=== PATIENT | female | born 1955 | race Caucasian/White ===

== ENCOUNTER → 2018-01-20 14:48 | Outpatient (POV) | payer BC, SELFPAY | PROVIDERS: Visit Provider Dermatology | DX: Z00.00 Encounter for general adult medical examination without abnormal findings (principal) ==

== ENCOUNTER → 2018-03-15 16:50 | Outpatient (CLI) | payer BC, SELFPAY ==
--- NOTE | 2018-03-15 | MM_ITS ---
MM Dig screening mamm BI w/CAD CAD Screening ORDERING PHYSICIAN : Edgardo Byers PATIENT AGE: 62 years GENDER: Female HISTORY 62-year-old. Does take estrogen. no new complaints. COMPARISON: Previous mammograms: , December 2014, 2015, January 2017. AlsoJanuary 2009 , 2008, 2012, November 2013 bilateral mammograms utilized INDICATION: TECHNIQUE: Standard CC and MLO images were obtained. R2 CAD reviewed. FINDINGS: Mild/moderate breast density bilaterally Prior studies are helpful. No significant new areas of concern RIGHT BREAST:Stable fibroglandular pattern with no new findings.. Follow up one year adequate LEFT BREAST:Asymmetric slight irregular area of focal density at medial left breast on cc view has been seen on multiple studies dating back to 2008. It dissipates on today's axillary cc view and MLO view which speaks against a significant lesion as well. -----IMPRESSION: --- Stable bilateral mammogram no significant interval change. Bilateral follow-up in one year. BI-RADS Category: 2 Benign Finding(s) RECOMMENDED FOLLOW-UP: 1YR - 1 YEAR FOLLOW-UP (A letter has been sent to the patient regarding results of the study.)
== END ==
PROVIDERS: PCP Family Medicine; Visit Provider Obstetrics & Gynecology Gynecology
DX: Z12.31 Encounter for screening mammogram for malignant neoplasm of breast (principal)
CPT/HCPCS: 77067

== ENCOUNTER → 2019-01-12 15:06 | Outpatient (CLI) | payer BC, SELFPAY ==
--- NOTE | 2019-01-12 15:13 | XR_ITS ---
XR shoulder RT min 2V HISTORY: Right shoulder pain and tenderness ITS.REASON: RT SHOULDR PAIN,SHOULDER WEAKNESS ORDERING PHYSICIAN: Mary Winkler PATIENT AGE: 63 years Comparison: None FINDINGS: No fracture or dislocation. No lytic or blastic change. There is normal mineralization. The joint spaces are well-preserved. No significant degenerative/arthritic changes. No erosive changes evident. There is mild subacromial stenosis with lucencies along the subcortical region of the greater tuberosity. These findings may be seen with rotator cuff disease. IMPRESSION: Subacromial stenosis with subcortical lucencies of the greater tuberosity which may result in impingement upon the rotator cuff with rotator cuff disease
== END ==
PROVIDERS: PCP Family Medicine; Visit Provider Nurse Practitioner Family
DX: M25.511 Pain in right shoulder (principal); M62.81 Muscle weakness (generalized)
CPT/HCPCS: 73030

== ENCOUNTER → 2019-02-16 11:45 | Outpatient (CLI) | payer BC, SELFPAY ==
[2019-02-16 13:21] LABS: Free T4 (Free Thyroxine) 0.84 ng/dl (0.76-1.46); Thyroid Stimulating Hormone 1.77 uIU/ml (0.358-3.740)
[2019-02-17 14:42] LABS: Thyroid Peroxidase Antibodies 8 IU/mL (0-34)
[2019-02-20 13:08] LABS: Calcitonin <2.0 pg/mL (0.0-5.0); Thyroid Stimulating Immunoglob <0.10 IU/L (0.00-0.55)
== END ==
PROVIDERS: Visit Provider Otolaryngology
DX: E01.0 Iodine-deficiency related diffuse (endemic) goiter (principal); E04.1 Nontoxic single thyroid nodule
CPT/HCPCS: 36415; 82308; 84439; 84443; 84445; 86376

== ENCOUNTER → 2019-02-22 08:35 | Outpatient (CLI) | payer BC, SELFPAY ==
--- NOTE | 2019-02-22 08:37 | MR_ITS ---
MR shoulder RT wo con COMPARISON: 01/12/2019 HISTORY: Right shoulder pain with limited range of motion ORDERING PHYSICIAN: Heidi Dias MD PATIENT AGE: 63 years TECHNIQUE: Routine multiplanar multiecho sequences are performed without contrast. FINDINGS: Hypertrophic changes are present at the acromioclavicular joint. There is moderate to severe subacromial stenosis with low-lying lateral acromion with acromiohumeral space of 2 mm. There is complete tear of the supraspinatus tendon with mild retraction of the musculotendinous fibers. The infraspinatus tendon appears intact as does the subscapularis and teres minor tendon. There is a small joint effusion and a small amount fluid in the subacromial and subdeltoid region. Bicipital tendon is in place. No obvious labral tear. Small amount fluid is present in the subcoracoid region IMPRESSION: 1. Complete tear of the supraspinatus tendon with retraction of the musculotendinous fibers. 2. 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 Small shoulder joint effusion with small amount of fluid in the subcoracoid region consistent with mild bursitis
== END ==
PROVIDERS: PCP Family Medicine; Visit Provider Orthopaedic Surgery
DX: M75.100 Unspecified rotator cuff tear or rupture of unspecified shoulder, not specified as traumatic (principal)
CPT/HCPCS: 73221

== ENCOUNTER → 2019-02-27 15:17 | Outpatient (CLI) | payer BC, SELFPAY ==
--- NOTE | 2019-02-27 15:19 | US_ITS ---
US thyroid HISTORY: Enlarged thyroid gland ITS.REASON: enlarged ORDERING PHYSICIAN: Sanjay Vargas MD PATIENT AGE: 63 years Comparison: None FINDINGS: The right lobe is 4.3 x 1.2 x 1.2 cm. There is a 2 mm isoechoic nodule in the upper pole laterally and a 3 mm cyst in the lower pole. The left lobe is 3.9 x 1.1 x 1.6 cm. 3 mm hypoechoic nodule is present in the upper pole. A 4 mm cystic lesion is present in the lower pole. There is a 10 x 6 mm slightly hypoechoic nodule in the lower pole. This nodule well-circumscribed IMPRESSION: Bilateral thyroid nodules largest on the left at 1 cm. Low concern for malignancy. Recommend follow-up exam in 6 months to confirm stability.
== END ==
PROVIDERS: PCP Family Medicine; Visit Provider Otolaryngology
DX: E01.0 Iodine-deficiency related diffuse (endemic) goiter (principal); E04.1 Nontoxic single thyroid nodule
CPT/HCPCS: 76536

== ENCOUNTER → 2019-04-26 16:49 | Outpatient (CLI) | payer BC, SELFPAY ==
--- NOTE | 2019-04-26 16:58 | MM_ITS ---
MM Dig screening mamm BI w/CAD CAD Screening COMPARISON: Digital mammograms with CAD 02/12/2017 and 03/15/2018 INDICATION: There is no personal or family history of breast cancer TECHNIQUE: Standard CC and MLO images were obtained. R2 CAD reviewed. FINDINGS: Moderate somewhat heterogenic fibroglandular densities are seen in the central portions of both breasts and the findings are bilateral and symmetrical. There is a mole marker each breast. There is no suspicious lesion and there are no suspicious microcalcifications. IMPRESSION: Moderate breast density with no suspicious lesion seen BI-RADS Category: 2 Benign Finding(s) RECOMMENDED FOLLOW-UP: 1YR - 1 YEAR FOLLOW-UP (A letter has been sent to the patient regarding results of the study.)
== END ==
PROVIDERS: PCP Family Medicine; Visit Provider Obstetrics & Gynecology Gynecology
DX: Z12.31 Encounter for screening mammogram for malignant neoplasm of breast (principal)
CPT/HCPCS: 77067

== ENCOUNTER → 2019-05-30 09:27 | Outpatient (POV) | payer BC, SELFPAY | PROVIDERS: Visit Provider Dermatology | DX: Z00.00 Encounter for general adult medical examination without abnormal findings (principal) ==

== ENCOUNTER → 2019-07-03 11:05 | Outpatient (CLI) | payer BC, SELFPAY ==
--- NOTE | 2019-07-03 11:58 | ECG_ITS ---
APPROVED REPORT Exam: Resting ECG HR:60 bpm ECG Measurements Heart Rate 60 AXES TX 138 P 38 QRSd 76 QRS 75 QT 404 T 45 QTc 404 <Conclusion> Normal sinus rhythm Nonspecific ST abnormality Abnormal ECG Electronically signed by : Rui Gacria, 07/03/2019 17:32:57
[2019-07-03 12:08] LABS: Basophils % 0.8 % (0.1-2.0); Eosinophils # 0.2 K/mm3 (0.0-0.4); Eosinophils % 3.6 % (0.1-12.0); Hematocrit 37.4 % (37.0-47.0); Lymphocytes # 1.5 K/mm3 (0.7-4.5); Lymphocytes % 31.8 % (10-50); Mean Corpuscular HGB Conc 31.9 g/dL (31.8-35.4); Mean Corpuscular Hemoglobin 30.2 pg (27.0-31.2); Mean Corpuscular Volume 94.7 fl (81-99); Mean Platelet Volume 7.1 fl (7.4-10.4); Monocytes # 0.3 K/mm3 (0.1-1.0); Monocytes % 6.9 % (1.7-9.3); Neutrophils # 2.7 K/mm3 (1.8-7.8); Neutrophils % 56.9 % (37.0-80.0); Platelet Count 318 K/mm3 (142-424); Red Blood Count 3.96 M/mm3 (4.20-5.40); Red Cell Distribution Width 12.5 % (11.5-17.5); White Blood Count 4.8 K/mm3 (4.8-10.8)
[2019-07-03 12:47] LABS: Alanine Aminotransferase 27 U/L (12-78); Albumin Level 3.7 gm/dL (3.4-5.0); Albumin/Globulin Ratio 1.2 (1.1-1.8); Alkaline Phosphatase 68 U/L (46-116); Anion Gap 11.5 mEq/L (5-15); Aspartate Amino Transferase 17 U/L (15-37); Bilirubin,Total 0.3 mg/dL (0.2-1.0); Blood Urea Nitrogen 18 mg/dL (7-18); Calcium 9.4 mg/dL (8.5-10.1); Carbon Dioxide 31 mmol/L (21.0-32.0); Chloride 104 mmol/L (98-107); Creatinine,Serum 0.63 mg/dL (0.55-1.02); Estimated Glomerular Filt Rate 95 ml/min (>60); GFR (African American) 115 ML/MIN (>60); Glucose 73 mg/dL (74-106); Potassium 4.5 mmoL/L (3.5-5.1); Sodium 142 mmol/L (136-145); Total Protein,Serum 6.7 gm/dL (6.4-8.2)
== END ==
PROVIDERS: PCP Family Medicine; Visit Provider Orthopaedic Surgery
DX: Z01.818 Encounter for other preprocedural examination (principal)
CPT/HCPCS: 36415; 80053; 85025; 93005

== ENCOUNTER → 2019-08-31 13:55 | Outpatient (CLI) | payer BC, SELFPAY ==
--- NOTE | 2019-08-31 13:56 | US_ITS ---
PROCEDURE: US THYROID CLINICAL INDICATION: goiter Follow-up multiple thyroid nodules COMPARISON: THY US thyroid from 02/27/2019 FINDINGS: Right lobe: 3.9 x 1.3 x 1.4 cm. There are 3 stable hypoechoic nodules Left lobe: 4.2 x 1.2 x 1.4 cm. There are 2 hypoechoic nodules in the upper pole and may be due to small cyst unchanged. A 9 by 6 mm isoechoic nodules present in the lower pole well-circumscribed wider than tall with no obvious internal calcifications unchanged. In addition there is a 5 x 3 mm mixed nodule in the lower pole probably benign not recently demonstrated which may be due to technique Isthmus: Additional findings: IMPRESSION: Bilateral thyroid nodules overall not significantly changed. A 5 mm mixed cystic and solid nodules present in the lower pole not recently identified possibly related to the technique Dictated by: Kwadwo Osei MD 08/31/2019 17:25 Electronically signed by Kwadwo Osei MD in [place] 08/31/2019 17:25
[2019-08-31 16:33] LABS: Free T4 (Free Thyroxine) 0.92 ng/dl (0.76-1.46); Thyroid Stimulating Hormone 1.97 uIU/ml (0.358-3.740)
== END ==
PROVIDERS: PCP Family Medicine; Visit Provider Otolaryngology
DX: E04.1 Nontoxic single thyroid nodule (principal); E03.9 Hypothyroidism, unspecified; E04.9 Nontoxic goiter, unspecified
CPT/HCPCS: 36415; 76536; 84439; 84443

== ENCOUNTER → 2019-10-27 09:10 | Outpatient (CLI) | payer BC, SELFPAY ==
--- NOTE | 2019-10-27 09:15 | XR_ITS ---
PROCEDURE: XR SHOULDER RT MIN 2V CLINICAL INDICATION: shoulder pain Recurring shoulder pain COMPARISON: SHOULDCMRT XR shoulder RT min 2V from 01/12/2019 FINDINGS: There are postsurgical changes with [address] along the proximal humerus. There are mild osteoarthritic changes the glenohumeral joint with subacromial stenosis. No acute fracture or dislocation. IMPRESSION: There are postsurgical changes with [address] along the proximal humerus. There are mild osteoarthritic changes the glenohumeral joint with subacromial stenosis. No acute fracture or dislocation Dictated by: Kwadwo Osei MD 10/27/2019 11:45 Electronically signed by Kwadwo Osei MD in [place] 10/27/2019 11:45
== END ==
PROVIDERS: PCP Family Medicine; Visit Provider Orthopaedic Surgery
DX: M75.101 Unspecified rotator cuff tear or rupture of right shoulder, not specified as traumatic (principal); M75.21 Bicipital tendinitis, right shoulder; M75.41 Impingement syndrome of right shoulder
CPT/HCPCS: 73030

== ENCOUNTER 2019-12-18 10:30 | Outpatient (RCR) | payer BC, SELFPAY ==
--- NOTE | 2019-08-22 14:51 | HMH.OTOPEV ---
OT Inpatient Evaluation Rehab OT Outpatient Eval Start: 08/22/19 13:45 Freq: Status: Active Protocol: Document 08/22/19 13:46 TFRY (Rec: 08/22/19 14:28 TFRY [id number]) Electronically Signed By Hannah Benson OT 08/22/19 13:46 Outpatient Therapy Subjective History Subjective History This is 64 year right handed female referred to occupational therapy right shoulder RTC and biceps tenotomy. Patient underwent surgery on 08/08/19. Patient reported shoulder has been extremely painfully for past 11/2 years. Chief Complaint Pain Symptom Type Sharp,Other Symptoms Relieved By Rest/Positioning,Ice Symptoms Aggravated By Physical Activity Prior Functional Limitations None Current Functional Limitations Housework,Dressing,Sleeping Symptom Description Activity Dependent Level of pain today (0-10) 3 Pain scale - at its best (0-10) 2 Pain scale - at its worst (0-10) 7 Shoulder/Elbow Eval Shoulder Objective Measurements Shoulder ROM Right Shoulder ROM Limitations Pain Shoulder Abduction Passive Range of 55 Motion (degrees) Shoulder Flexion Passive Range of Motion 45 (degrees) Shoulder External Rotation Passive Range 0 of Motion (degrees) Shoulder Internal Rotation Passive Range 20 of Motion (degrees) pain with passive ROM shoulder exam right standard decreased ROM shoulder exam standard right Shoulder MMT Shoulder Strength Reason Not Measured Orthopedic Precautions Elbow Objective Measurements OT Outpatient Assessment Impairments Problems/Impairments Impaired Range of Motion, Impaired Strength,Impaired Dressing,Impaired Household Care,Subjective C/O Pain Prognosis Rehab Potential Good Clinical Impression Consistent with Diagnosis Yes Short Term Goals Number of Weeks 4 Increase Range of Motion Yes: right shoulder PROM - WFL Increase Strength Yes: right shoulder strength 3 /5 Improve Ability to Dress Self Yes: patient report increase independence Improve Ability For Household Care Yes: patient report increase independence Decrease Subjective C/O Pain Yes: patient report pain a 5 at worse in right shoulder Patient to be Ind w/ HEP Yes Patient to be Ind w/ Advanced HEP Yes 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
--- NOTE | 2019-09-22 09:58 | HMH.RHREAS ---
Rehab Reassessment Rehab OP Re-assessment Start: 09/22/19 09:02 Freq: Status: Active Protocol: Document 09/22/19 09:02 TFRY (Rec: 09/22/19 09:58 TFRY [id number]) Electronically Signed By Hannah Benson OT 09/22/19 09:02 Rehab Re-assessment Subjective Subjective It is about 60% better. Objective Objective Notes Patient seen this date for skilled occupational therapy services. See exercise flow sheet for exercises. Reassessment of PROM: shoulder flexion - 0-155; abduction - 0-130; int. rot. - 0-70; ext. rot. - 0-25. AROM shoulder - flex - 0-38; abduction - 0-55. Pain at worse is 5 in shoulder. Increasing independence with ADL's around home is improving. Assessment Progress Assessment Progressing as Expected Assessment Notes ROM improving. Decrease in pain and increasing independence with ADL's. Patient goals met STG's - 4/7 LTG s - 3/7 Goals Not Met ROM/strength Plan Plan Continue to work on unmet goals Frequency of Therapy 2 Duration of therapy 8 Time and Billing Re-Eval Time 5 Re-Eval Billing Units 0 PHYSICIAN CERTIFICATION: I certify the specified therapy services for Abby Mireles are required, authorized, and reviewed every 30 days.
--- NOTE | 2019-10-26 14:56 | HMH.RHREAS ---
Rehab Reassessment Rehab OP Re-assessment Start: 09/22/19 09:02 Freq: Status: Active Protocol: Document 10/26/19 11:08 RMJOSÉ MIGUELL (Rec: 10/26/19 14:56 RMARSHALL [id number]) Electronically Signed By Gentry Jeong OT 10/26/19 11:08 Rehab Re-assessment Objective Objective Notes Pt continues to be seen twice a week in order to address right shoulder deficits. Pt engages in AROM/AAROM/ Strengthening exercises at right shoulder. Pt also receives PROM manual stretching to right shoulder. Pt does receive modalities in order to decrease pain/ inflammation. Reassessment of PROM: shoulder flexion - 0-155; abduction - 0-130; int. rot. - 0-70; ext. rot. - 0-25. AROM shoulder - flex - 0-38; abduction - 0-55. Pain at worse is 5 in shoulder. Increasing independence with ADL's around home is improving. Assessment Progress Assessment Slower Than Expected Assessment Notes Pt reports she feels she has had a set back over the past few weeks. Pt explains she recalls a specific incident at her 8 week post op gt, when she was startled and jerked her right arm quickly in extension/abduction which immediately sent a sharp pain in the anterior aspect (long head of the bicep area). Since this occured she has had decreased AROM and strength at the right shoulder. Pt's ortho is aware of situation and she has seen the doctor. Last week she received a steroid injection in the shoulder, but has not seen an improvement in pain or motion since. Current Right shoulder AROM Flex: 90 degrees Abd: 80 degrees ER: 45 degrees
--- NOTE | 2019-11-23 11:42 | HMH.RHREAS ---
Rehab Reassessment Rehab OP Re-assessment Start: 09/22/19 09:02 Freq: Status: Active Protocol: Document 11/23/19 10:17 RMARSHALL (Rec: 11/23/19 11:42 RMARSHALL [id number]) Electronically Signed By Gentry Jeong OT 11/23/19 10:17 Rehab Re-assessment Subjective Subjective I see a lot of improvements now. Objective Objective Notes Pt continues to be seen twice a week in order to address right shoulder deficits. Pt engages in AROM/AAROM/ Strengthening exercises at right shoulder. Pt also receives PROM manual stretching to right shoulder. Pt does receive modalities in order to decrease pain/ inflammation. Reassessment of PROM: shoulder flexion - 0-155; abduction - 0-130; int. rot. - 0-70; ext. rot. - 0-25. AROM shoulder - flex - 0-38; abduction - 0-55. Pain at worse is 5 in shoulder. Increasing independence with ADL's around home is improving. Assessment Progress Assessment Slower Than Expected Assessment Notes Pt reports her pain has improved greatly since last reassessment. Pt informed therapist her pain is normally a 1/10 at rest and 2/10 during use. AROM and strength have improved since last reassessment. Current Right shoulder AROM Flex: 130 degrees Abd: 120 degrees ER: 55 degrees IR: 60 degrees Current R shoulder MMT Flex: 3 Abd: 3 ER: 3 IR: 3 Patient goals met Short term goals have been met Goals Not Met long term care administrator goals Revised Goals Continue progressing towards fdc goals written on initial evaluation Plan Plan Continue with OT plan of care. Frequency of Therapy 2 Dur
== END 2019-12-18 10:35 | disposition home or self-care (01) ==
LOC: OT 10:30
PROVIDERS: PCP Family Medicine; Visit Provider Orthopaedic Surgery
DX: M75.101 Unspecified rotator cuff tear or rupture of right shoulder, not specified as traumatic (principal)
CPT/HCPCS: 97014; 97110; 97140; 97164; 97165; G0283

== ENCOUNTER → 2020-03-01 09:54 | Outpatient (CLI) | payer BC, SELFPAY ==
--- NOTE | 2020-03-01 09:54 | US_ITS ---
PROCEDURE: US THYROID CLINICAL INDICATION: ringing in ears Six-month follow-up bilateral thyroid nodules COMPARISON: US THYROID from 08/31/2019 FINDINGS: Right lobe: The right lobe is 4 x 1.2 x 0.9 cm. There is a 3 mm cystic nodule in the upper pole. A 3 mm cystic nodules present in the lower pole medially. A 3 mm cystic nodules also noted in the upper pole anteriorly Left lobe: 4.1 x 1.4 x 1.4 cm. A 3 mm cyst is present in the upper pole. A 4 mm cyst is present in the upper pole. A solid-appearing well-circumscribed 9 x 6 mm nodules present in the lower pole unchanged hypervascular Isthmus: Unremarkable Additional findings: IMPRESSION: No change bilateral thyroid nodules with a sub solid nodule in the lower pole on the left which is hypervascular and not significantly changed Dictated by: Kwadwo Osei MD 03/01/2020 21:12 Electronically signed by Kwadwo Osei MD in [place] 03/01/2020 21:12
== END ==
PROVIDERS: PCP Family Medicine; Visit Provider Otolaryngology
DX: E04.9 Nontoxic goiter, unspecified (principal)
CPT/HCPCS: 76536

== ENCOUNTER → 2020-06-11 08:54 | Outpatient (POV) | payer BC, SELFPAY | PROVIDERS: Visit Provider Dermatology | DX: Z00.00 Encounter for general adult medical examination without abnormal findings (principal) ==

== ENCOUNTER → 2020-06-20 09:19 | Outpatient (CLI) | payer BC, SELFPAY ==
--- NOTE | 2020-06-20 09:22 | MM_ITS ---
PROCEDURE: MM DIG SCREENING MAMM BI W/CAD Referring Doctor: Dennise Farrar Patient Age:65Y CLINICAL INDICATION: Routine SCREENING. Takes estradiol. No new complaints. Noncontributory family history COMPARISON: MG DIGMAMMS MAMMOGRAM SCREEN-STAFF EDITOR N/C from 10/28/2009 MG DMSB DIGITAL MAMM-SCREEN BILATERAL from 11/03/2010 MG DMSB DIGITAL MAMM-SCREEN BILATERAL from 11/05/2011 MG DMSB DIGITAL MAMM-SCREEN BILATERAL from 11/16/2012 MG DMSB DIG MAMM-SCREEN NOE from 11/20/2013 MG DMSB DIG MAMM-SCREEN NOE from 01/08/2015 MG DMSB DIG MAMM-SCREEN NOE from 01/13/2016 MG DMSB DIG MAMM-SCREEN NOE W/CAD from 02/12/2017 MG SCBI MM Dig screening mamm BI w/CAD from 03/15/2018 MG DIG MAMM-SCREEN NOE from 04/26/2019 TECHNIQUE: Standard CC and MLO images were obtained. R2 CAD reviewed. Bilateral digital breast tomosynthesis included. Additional axillary CC views both breast included FINDINGS: Moderate breast density. Heterogeneous fibroglandular pattern bilaterally seen today is similar to previous studies with no new dominant or suspicious mass . No suspicious calcifications. CAD computer review highlights no areas of concern either breast Right breast no new areas of significant concern. Left breast no new areas of significant concern Bilateral follow-up 1 year IMPRESSION: Stable bilateral mammogram. Moderately dense heterogeneous breast with no new areas of concern identified Bilateral follow-up 1 year recommended BI-RAD Category: 1 Negative FOLLOW-UP: 1YR 1 Year Follow-up (A letter has been sent to the patient regarding results of the study.) Dictated by: Manav Arredondo MD 06/20/2020 10:15 Manav Arredondo MD in [place] 06/20/2020 10:15
== END ==
PROVIDERS: PCP Family Medicine; Visit Provider Obstetrics & Gynecology Gynecology
DX: Z12.31 Encounter for screening mammogram for malignant neoplasm of breast (principal)
CPT/HCPCS: 77063; 77067

== ENCOUNTER → 2020-08-27 13:27 | Outpatient (CLI) | payer BC, SELFPAY ==
--- NOTE | 2020-08-27 13:27 | US_ITS ---
PROCEDURE: US THYROID CLINICAL INDICATION: goiter 6 month follow up---nodules still seen bilaterally-- hypervascular nodule lower left lobe the COMPARISON: US US THYROID from 03/01/2020 FINDINGS: Right lobe: 0.9cm x 4.0cm x 1.0cm Left lobe: 1.0cm x 4.2cm x 1.5cm Isthmus: Normal at 2 mm in thickness Additional findings: Multiple small hypoechoic nodules once again noted on the right. The largest is 4 mm in the upper pole and is unchanged consider the difference in imaging planes Multiple hypoechoic nodules are present on the left the largest of which is in the lower pole measuring 8 x 6 mm unchanged. IMPRESSION: No change bilateral thyroid nodules Dictated by: Kwadwo Osei MD 08/28/2020 13:26 Kwadwo Osei MD in [place] 08/28/2020 13:26
== END ==
PROVIDERS: PCP Family Medicine; Visit Provider Otolaryngology
DX: E03.9 Hypothyroidism, unspecified (principal); E04.9 Nontoxic goiter, unspecified
CPT/HCPCS: 76536

== ENCOUNTER → 2021-03-31 09:45 | Outpatient (CLI) | payer MEDICARE, SELFPAY ==
--- NOTE | 2021-03-31 09:46 | US_ITS ---
PROCEDURE: US THYROID CLINICAL INDICATION: hx nodule. Follow-up. COMPARISON: US US THYROID from 03/01/2020 US US THYROID from 08/27/2020 03/01/2020 FINDINGS: A few tiny subcentimeter cysts in the right thyroid lobe again noted with unchanged 9 millimeter solid nodule in the left thyroid lobe. No new cysts or nodules. No abnormal vascularity. The thyroid isthmus is normal. Thyroid echogenicity echotexture is normal. Right thyroid lobe measures 3.9 x 1.7 x 1 cm and the left thyroid lobe 4.2 x 1.8 x 1 cm. IMPRESSION: Unchanged tiny subcentimeter cyst in the right thyroid lobe and unchanged 9 millimeter solid nodule left thyroid lobe. Repeat thyroid ultrasound in 6 months recommended for continued close follow-up. Dictated by: Bartolo Carrasco 03/31/2021 10:34 Bartolo Carrasco in [place] 03/31/2021 10:34
== END ==
PROVIDERS: PCP Family Medicine; Visit Provider Otolaryngology
DX: E03.9 Hypothyroidism, unspecified (principal); E04.1 Nontoxic single thyroid nodule
CPT/HCPCS: 76536

== ENCOUNTER → 2021-06-27 09:57 | Outpatient (CLI) | payer MEDICARE, SELFPAY ==
--- NOTE | 2021-06-27 09:59 | MM_ITS ---
PROCEDURE: MM DIG SCREENING MAMM BI W/CAD Digital Breast Tomosynthesis Included CLINICAL INDICATION: SCREENING COMPARISON: MG SCBI MM Dig screening mamm BI w/CAD from 03/15/2018 MG DIG MAMM-SCREEN NOE from 04/26/2019 MG MM DIG SCREENING MAMM BI W/CAD from 06/20/2020 TECHNIQUE: Standard CC and MLO images and 3D Tomosynthesis was obtained. R2 CAD reviewed. FINDINGS: The breasts are heterogeneously dense which may obscure small masses. T No suspicious appearing mass, malignant-appearing microcalcification, architectural distortion, or skin thickening.heNo suspicious appearing mass, malignant-appearing microcalcification, architectural distortion, or skin thickening. IMPRESSION: Negative no evidence of malignancy BI-RAD Category: 1 Negative FOLLOW-UP: 1 YR 1 Year Follow-up (A letter has been sent to the patient regarding results of the study.) Dictated by: Kwadwo Osei MD 07/10/2021 11:12 Kwadwo Osei MD in [place] 07/10/2021 11:12
== END ==
PROVIDERS: PCP Family Medicine; Visit Provider Obstetrics & Gynecology Gynecology
DX: Z12.31 Encounter for screening mammogram for malignant neoplasm of breast (principal)
CPT/HCPCS: 77063; 77067

== ENCOUNTER → 2021-12-16 15:48 | Outpatient (CLI) | payer MEDICARE, SELFPAY ==
[2021-12-16 18:47] LABS: Thyroid Stimulating Hormone 1.25 uIU/mL (0.465-4.68)
== END ==
PROVIDERS: Visit Provider Otolaryngology
DX: E03.9 Hypothyroidism, unspecified (principal)
CPT/HCPCS: 36415; 84443

== ENCOUNTER → 2022-03-10 10:41 | Outpatient (CLI) | payer MEDICARE, SELFPAY ==
--- NOTE | 2022-03-10 10:41 | US_ITS ---
FINAL REPORT TECHNIQUE: Sonographic images of the thyroid gland were obtained in the longitudinal and transverse planes. CLINICAL HISTORY: hx nodule COMPARISON: March 31, 2021 FINDINGS: The right lobe measures 4.1 x 1.4 x 1.1 cm. The left lobe measures 3.9 x 1.3 x 0.9 cm. The isthmus measures 3 mm which is normal. The gland is homogeneous. There are several sub centimeter colloid cysts which are unchanged in the right lobe. There are colloid cysts as well as solid nodules in the left lobe including a hypoechoic 9 mm nodule which is unchanged. It is wider than it is tall without calcification. There is a hypoechoic 6 mm nodule in the lower pole which is also unchanged. No new nodules are identified. The surrounding soft tissues are normal. Color imaging of the gland is within normal limits. IMPRESSION: Stable colloid cysts and solid left thyroid nodules. The largest nodule is a TI-RADS category 4, continued follow-up recommended. Reviewed, Interpreted and Dictated by Anastacia Rutledge MD Transcribed by Cady Wilkerson Authenticated by Anastacia Rutledge MD on 03/10/2022 01:55:03 PM [facility]
== END ==
PROVIDERS: PCP Family Medicine; Visit Provider Otolaryngology
DX: E03.9 Hypothyroidism, unspecified (principal)
CPT/HCPCS: 76536

== ENCOUNTER → 2022-03-10 11:48 | Outpatient (CLI) | payer MEDICARE, SELFPAY ==
[2022-03-10 13:21] LABS: T4 (Thyroxine) 8.7 ug/dl (5.53-11.0)
[2022-03-10 13:35] LABS: Thyroid Stimulating Hormone 1.34 uIU/mL (0.465-4.68)
[2022-03-11 09:29] LABS: Thyroid Peroxidase Antibodies <8 IU/mL (0-34)
[2022-03-11 22:21] LABS: Thyroglobulin Level <1.0 IU/mL (0.0-0.9)
[2022-03-12 07:14] LABS: Thyroid Stimulating Immunoglob <0.10 IU/L (0.00-0.55)
== END ==
PROVIDERS: PCP Otolaryngology; Visit Provider Otolaryngology
DX: E04.1 Nontoxic single thyroid nodule (principal)
CPT/HCPCS: 36415; 76536; 84436; 84443; 84445; 86376; 86800

== ENCOUNTER → 2022-06-16 10:07 | Outpatient (POV) | payer MEDICARE, SELFPAY | PROVIDERS: Visit Provider Dermatology | DX: Z00.00 Encounter for general adult medical examination without abnormal findings (principal) ==

== ENCOUNTER → 2022-07-01 10:52 | Outpatient (CLI) | payer MEDICARE, SELFPAY ==
--- NOTE | 2022-07-01 10:56 | MM_ITS ---
PROCEDURE INFORMATION: Exam: MG Bilateral Screening 3D Mammography Exam date and time: 07/01/2022 10:50 AM Age: 67 years old Clinical indication: Screening examination TECHNIQUE: Imaging protocol: Bilateral Screening tomosynthesis and 2D mammography including computer-aided detection (CAD) when performed. COMPARISON: 1. MG MM DIG SCREENING MAMM BI W/CAD 06/27/2021 9:57 AM 2. MG MM DIG SCREENING MAMM BI W/CAD 06/20/2020 9:36 AM FINDINGS: MAMMOGRAPHY: Breast composition: The breasts are heterogeneously dense, which may obscure small masses. Mass: None. Architectural distortion: None. Calcifications: No suspicious calcifications. Asymmetric density: None. Skin thickening: None. Axillary adenopathy: None. IMPRESSION: No mammographic evidence of malignancy. Annual screening is recommended unless otherwise clinically indicated. ASSESSMENT: BI-RADS Category 1: Negative
== END ==
PROVIDERS: PCP Internal Medicine Adolescent Medicine; Visit Provider Obstetrics & Gynecology Gynecology
DX: Z12.31 Encounter for screening mammogram for malignant neoplasm of breast (principal)
CPT/HCPCS: 77063; 77067

== ENCOUNTER → 2023-03-08 10:53 | Outpatient (CLI) | payer MEDICARE, SELFPAY ==
--- NOTE | 2023-03-08 10:58 | US_ITS ---
FINAL REPORT CLINICAL HISTORY: hypothyroid/hx nodule FINDINGS: THYROID ULTRASOUND Thyroid gland is normal size. The parenchyma shows normal echogenicity. There are multiple small bilateral thyroid nodules. In the right lobe of the thyroid is a 3 x 3 x 2 mm cystic TI-RADS 1 nodule. Also in the right lobe is a 4 x 3 x 3 mm cystic TI-RADS 1 nodule. In the left lobe of the thyroid is a 7 x 5 x 4 mm solid hypoechoic TI-RADS 4 nodule. In the left lobe of the thyroid is a 9 x 9 x 6 mm solid hypoechoic TI-RADS 4 nodule. There are other small nodules bilaterally. IMPRESSION: Multiple small subcentimeter bilateral thyroid nodules. No follow-up required. Reviewed, Interpreted and Dictated by Walter Salinas III, MD Transcribed by Bhavesh Goyal Authenticated and [facility]
[2023-03-08 12:24] LABS: Free T4 (Free Thyroxine) 1.03 ng/dl (0.78-2.19)
[2023-03-08 12:39] LABS: Thyroid Stimulating Hormone 1.62 uIU/mL (0.465-4.68)
== END ==
PROVIDERS: Nurse Practitioner; PCP Internal Medicine Adolescent Medicine; Visit Provider Otolaryngology
DX: E04.1 Nontoxic single thyroid nodule (principal); E03.9 Hypothyroidism, unspecified
CPT/HCPCS: 36415; 76536; 84439; 84443

== ENCOUNTER → 2023-03-16 10:41 | Outpatient (CLI) | payer MEDICARE, SELFPAY ==
--- NOTE | 2023-03-16 10:50 | XR_ITS ---
FINAL REPORT CLINICAL HISTORY: right hip pain that started after walking COMPARISON: None FINDINGS: RIGHT HIP Two views of the right hip demonstrate no acute fracture or dislocation. There is mild narrowing of the right hip joint space. The visualized bony structures are well aligned. No soft tissue abnormality is seen. IMPRESSION: No acute bony abnormality. Reviewed, Interpreted and Dictated by Deion Huerta MD Transcribed by Isatu Robbins Authenticated and [facility]
--- NOTE | 2023-03-16 10:51 | XR_ITS ---
FINAL REPORT CLINICAL HISTORY: OSTEOARTHRITIS, right hip pain that started after walking COMPARISON: None FINDINGS: Two views of the right femur: No acute bony abnormality is identified. Mild narrowing of the right hip joint space is present. No evidence of fracture or dislocation is seen. IMPRESSION: No acute bony abnormality identified. Reviewed, Interpreted and Dictated by Deion Huerta MD Transcribed by Isatu Robbins Authenticated and [facility]
== END ==
PROVIDERS: PCP Internal Medicine Adolescent Medicine; Visit Provider Internal Medicine Adolescent Medicine
DX: Z12.31 Encounter for screening mammogram for malignant neoplasm of breast (principal); Z78.0 Asymptomatic menopausal state; M16.11 Unilateral primary osteoarthritis, right hip
CPT/HCPCS: 73502; 73552

== ENCOUNTER → 2023-03-22 09:18 | Outpatient (CLI) | payer MEDICARE, SELFPAY ==
--- NOTE | 2023-03-22 09:25 | XR_ITS ---
FINAL REPORT TECHNIQUE: Bone densitometry calculations of the lumbar spine and left hip were obtained. CLINICAL HISTORY: POST MENOPAUSE FINDINGS: Using L1-4, the bone mineral density of the spine is 0.951 g/cm2, corresponding to T-score of -0.9 and a Z score of 1.0. This is within the range of normal. Using the right hip, the bone mineral density of the femoral neck is 0.792 g/cm2, corresponding to a T-score of -0.5 and a Z-score of 1.1. This is within the range of normal. NOTE: T-score: Standard deviation compared with peak bone mass of young adult mean. *Following the recommendations of the International Society of Bone densitometry, classification of hip BMD is based on the lower of two T-scores; total hip or femoral neck. IMPRESSION: 1. Bone mineral density of the lumbar spine within the range of normal. 2. Bone mineral density of the left femoral neck within the range of normal. Reviewed, Interpreted and Dictated by Anastacia Rutledge MD Transcribed by Ashlee Killian Authenticated and [facility]
== END ==
PROVIDERS: PCP Internal Medicine Adolescent Medicine; Visit Provider Internal Medicine Adolescent Medicine
DX: Z13.820 Encounter for screening for osteoporosis (principal); Z78.0 Asymptomatic menopausal state
CPT/HCPCS: 77080

== ENCOUNTER → 2023-06-22 09:44 | Outpatient (POV) | payer MEDICARE, SELFPAY | PROVIDERS: Visit Provider Dermatology | DX: Z00.00 Encounter for general adult medical examination without abnormal findings (principal) ==

== ENCOUNTER → 2023-07-05 15:19 | Outpatient (CLI) | payer MEDICARE, SELFPAY ==
--- NOTE | 2023-07-05 15:22 | MM_ITS ---
PROCEDURE INFORMATION: Exam: MG Bilateral Screening 3D Mammography Exam date and time: 07/05/2023 3:12 PM Age: 68 years old Clinical indication: Screening examination; No personal or family history of breast cancer TECHNIQUE: Imaging protocol: Bilateral Screening tomosynthesis and 2D mammography including computer-aided detection (CAD) when performed. COMPARISON: MG MM DIG SCREENING MAMM BI W/CAD 07/01/2022 10:56 AM FINDINGS: MAMMOGRAPHY: Breast composition: The breasts are heterogeneously dense, which may obscure small masses. Mass: Questionable 0.6 cm mass in the anterior left upper outer quadrant Architectural distortion: None. Calcifications: No suspicious calcifications. Asymmetric density: None. Skin thickening: None. Axillary adenopathy: None. IMPRESSION: PatternPatient to be recalled for spot compression views of the left breast in the CC and MLO projections, a full 90 degree lateral view, and left breast ultrasound for further evaluation of a left breast mass. ASSESSMENT: BI-RADS Category 0: Incomplete- Need Additional Imaging Evaluation and/or Prior Mammograms for Comparison
== END ==
PROVIDERS: PCP Internal Medicine Adolescent Medicine; Visit Provider Obstetrics & Gynecology Gynecology
DX: Z12.31 Encounter for screening mammogram for malignant neoplasm of breast (principal)
CPT/HCPCS: 77063; 77067

== ENCOUNTER → 2023-07-16 14:28 | Outpatient (CLI) | payer MEDICARE, SELFPAY ==
--- NOTE | 2023-07-16 14:33 | MM_ITS ---
PROCEDURE INFORMATION: Exam: MG Left Diagnostic Breast Tomosynthesis Exam date and time: 07/16/2023 2:35 PM Age: 68 years old Clinical indication: Patient recalled on the basis of a screening mammogram for further evaluation; Left breast; mass TECHNIQUE: Imaging protocol: Left Diagnostic tomosynthesis and 2D mammography including computer-aided detection (CAD) when performed. Unilateral or bilateral exam. COMPARISON: 1. MG MM DIG SCREENING MAMM BI W/CAD 07/05/2023 3:12 PM 2. MG MM DIG SCREENING MAMM BI W/CAD 07/01/2022 10:56 AM FINDINGS: MAMMOGRAPHY: Digital diagnostic spot compression views of the left breast and 90 degree lateral view of the left breast demonstrate normal overlapping fibroglandular structures without persistent mass or asymmetry identified. IMPRESSION: No mammographic evidence of malignancy. Annual bilateral mammographic screening is recommended unless otherwise clinically indicated. ASSESSMENT: BI-RADS Category 1: Negative
== END ==
PROVIDERS: PCP Internal Medicine Adolescent Medicine; Visit Provider Obstetrics & Gynecology Gynecology
DX: R92.8 Other abnormal and inconclusive findings on diagnostic imaging of breast (principal)
CPT/HCPCS: 77061; 77065; G0279

== ENCOUNTER → 2023-07-27 07:05 | Outpatient (CLI) | payer MEDICARE, SELFPAY ==
[2023-07-27 18:13] LABS: Adenovirus,PCR Not Detected (NotDetected); Coronavirus 19, PCR Not Detected (NotDetected); Coronavirus 229E Not Detected (NotDetected); Coronavirus NL63 Not Detected (NotDetected); Coronavirus OC43 Not Detected (NotDetected); Coronovirus HKU1,PCR Not Detected (NotDetected); Human Metapneumovirus Not Detected (NotDetected); Influenza A, PCR Not Detected (NotDetected); Influenza AH1, 2009 Not Detected (NotDetected); Influenza AH1, PCR Not Detected (NotDetected); Influenza AH3,PCR Not Detected (NotDetected); Influenza B, PCR Not Detected (NotDetected); Parainfluenza 1, PCR Not Detected (NotDetected); Parainfluenza 2, PCR Not Detected (NotDetected); Parainfluenza 3, PCR Not Detected (NotDetected); Parainfluenza 4, PCR Not Detected (NotDetected); Respiratory Syncytial Virus Not Detected (NotDetected); Rhinovirus/Enterovirus Not Detected (NotDetected)
== END ==
PROVIDERS: PCP Student in an Organized Health Care Education/Training Program; Visit Provider Student in an Organized Health Care Education/Training Program
DX: J02.9 Acute pharyngitis, unspecified (principal); R09.89 Other specified symptoms and signs involving the circulatory and respiratory systems; Z20.828 Contact with and (suspected) exposure to other viral communicable diseases; H92.03 Otalgia, bilateral
CPT/HCPCS: 87070; 87581; 87632; 87635; 87798

== ENCOUNTER → 2023-07-27 07:51 | Outpatient (CLI) | payer MEDICARE, SELFPAY | PROVIDERS: PCP Internal Medicine Adolescent Medicine; Visit Provider Obstetrics & Gynecology Gynecology | DX: R92.8 Other abnormal and inconclusive findings on diagnostic imaging of breast (principal) ==

== ENCOUNTER → 2023-07-30 09:57 | Outpatient (CLI) | payer MEDICARE, SELFPAY ==
--- NOTE | 2023-07-30 10:00 | US_ITS ---
PROCEDURE INFORMATION: Exam: US Left Breast, Complete Exam date and time: 07/30/2023 10:22 AM Age: 68 years old Clinical indication: Patient recalled for further evaluation of a questionable left breast mass TECHNIQUE: Imaging protocol: Complete ultrasound of all four quadrants of the left breast and the retroareolar regions, including ultrasound of the axilla when performed. COMPARISON: MG MM DIG MAMM DX UNILAT LT CAD 07/16/2023 2:35 PM FINDINGS: Breast: Sonographic images of the left breast including the retroareolar region, all 4 quadrants and the axilla do not demonstrate any solid masses. 0.4 cm cyst in the 10 o'clock axis 1 cm from the nipple. No architectural distortion or acoustical shadowing. No skin thickening or axillary adenopathy. IMPRESSION: No sonographic evidence of malignancy. Annual mammographic screening is recommended unless otherwise clinically indicated. ASSESSMENT: BI-RADS Category 1: Negative
== END ==
PROVIDERS: PCP Internal Medicine Adolescent Medicine; Visit Provider Obstetrics & Gynecology Gynecology
DX: R92.8 Other abnormal and inconclusive findings on diagnostic imaging of breast (principal)
CPT/HCPCS: 76641

== ENCOUNTER 2024-02-22 15:44 | Outpatient (POV) | payer MEDICARE, SELFPAY | END 2024-02-22 23:59 | disposition home or self-care (01) | LOC: SC 15:45 | PROVIDERS: PCP Internal Medicine Adolescent Medicine; Visit Provider Dermatology | DX: Z00.00 Encounter for general adult medical examination without abnormal findings (principal) ==

== ENCOUNTER 2024-03-10 12:39 | Outpatient (CLI) | payer MEDICARE, SELFPAY ==
--- NOTE | 2024-03-10 12:40 | US_ITS ---
FINAL REPORT TECHNIQUE: Ultrasound images of the thyroid were obtained. CLINICAL HISTORY: thyroid nodule FINDINGS: The right lobe of the thyroid measures 4.6 x 0.9 x 1.2 cm. It is normal in echogenicity. The left lobe of the thyroid measures 4.5 x 1.1 x 1.2 cm. It is normal in echogenicity. There are multiple low-attenuation nodules seen bilaterally measuring up to 9 mm in the lower pole of the left lobe, all TR 4 nodules measuring less than 1 cm. IMPRESSION: Multiple bilateral thyroid nodules measuring less than 1 cm. No follow-up needed. Reviewed, Interpreted and Dictated by Deion Huerta MD Transcribed by Ashlee Killian Authenticated and [facility]
[2024-03-10 14:26] LABS: Free T4 (Free Thyroxine) 0.93 ng/dl (0.78-2.19)
[2024-03-10 14:39] LABS: Thyroid Stimulating Hormone 1.44 uIU/mL (0.465-4.68)
== END 2024-03-10 23:59 | disposition home or self-care (01) ==
LOC: RAD 12:40
PROVIDERS: PCP Internal Medicine Adolescent Medicine; Visit Provider Nurse Practitioner
DX: E04.1 Nontoxic single thyroid nodule (principal); E03.9 Hypothyroidism, unspecified
CPT/HCPCS: 36415; 76536; 84439; 84443

== ENCOUNTER 2024-08-24 14:11 | Outpatient (CLI) | payer MEDICARE, SELFPAY ==
--- NOTE | 2024-08-24 14:37 | MM_ITS ---
PROCEDURE INFORMATION: Exam: MG Bilateral Screening 3D Mammography Exam date and time: 08/24/2024 2:19 PM Age: 69 years old Clinical indication: Screening examination TECHNIQUE: Imaging protocol: Bilateral Screening tomosynthesis and 2D mammography including computer-aided detection (CAD) when performed. COMPARISON: No relevant prior studies available. FINDINGS: MAMMOGRAPHY: Breast composition: There are scattered areas of fibroglandular density. Mass: None. Architectural distortion: None. Calcifications: No suspicious calcifications. Asymmetric density: None. Skin thickening: None. Axillary adenopathy: None. IMPRESSION: No mammographic evidence of malignancy. Annual screening is recommended unless otherwise clinically indicated. ASSESSMENT: BI-RADS Category 1: Negative.
== END 2024-08-24 23:59 | disposition home or self-care (01) ==
LOC: RAD 14:11
PROVIDERS: PCP Internal Medicine Adolescent Medicine; Visit Provider Obstetrics & Gynecology Gynecology
DX: Z12.31 Encounter for screening mammogram for malignant neoplasm of breast (principal)
CPT/HCPCS: 77063; 77067

== ENCOUNTER 2025-03-14 09:50 | Outpatient (CLI) | payer MEDICARE, SELFPAY ==
--- NOTE | 2025-03-14 10:00 | US_ITS ---
FINAL REPORT CLINICAL HISTORY: history of multiple thyroid nodules COMPARISON: 03/10/2024 FINDINGS: Sonographic images of the thyroid gland were obtained. The right thyroid lobe measures 38 mm. in length. The left thyroid lobe measures 41 mm. in length. The thyroid isthmus measures 2 mm. The echogenicity is normal. There are multiple anechoic and hypoechoic thyroid nodules noted bilaterally. On the right side, the nodules are all subcentimeter. On the left side there is a TI-RADS category three 1 cm in diameter nodule, which does not require follow-up according to TI-RADS criteria. IMPRESSION: Multiple thyroid nodules as described above, the largest in the left lobe measuring 1 cm in size, a TI-RADS category 3 nodule. By TI-RADS criteria, no follow-up is necessary at this time. Reviewed, Interpreted and Dictated by Deion Huerta MD Transcribed by Isatu Robbins Authenticated and [facility]
[2025-03-14 11:42] LABS: Free T4 (Free Thyroxine) 0.91 ng/dl (0.78-2.19)
[2025-03-14 11:55] LABS: Thyroid Stimulating Hormone 1.69 uIU/mL (0.465-4.68)
== END 2025-03-14 23:59 | disposition home or self-care (01) ==
LOC: RAD 09:51
PROVIDERS: PCP Internal Medicine Adolescent Medicine; Visit Provider Nurse Practitioner
DX: E04.1 Nontoxic single thyroid nodule (principal); E03.9 Hypothyroidism, unspecified
CPT/HCPCS: 36415; 76536; 84439; 84443

== ENCOUNTER 2025-09-17 10:43 | Outpatient (CLI) | payer MEDICARE, SELFPAY ==
--- NOTE | 2025-09-17 10:45 | MM_ITS ---
PROCEDURE INFORMATION: Exam: MG Bilateral Screening 3D Mammography Exam date and time: 09/17/2025 10:56 AM Age: 70 years old Clinical indication: Screening mammogram TECHNIQUE: Imaging protocol: Bilateral Screening tomosynthesis and 2D mammography including computer-aided detection (CAD) when performed. COMPARISON: MG MM DIG SCREENING MAMM BI W/CAD 08/24/2024 2:19 PM FINDINGS: MAMMOGRAPHY: Breast composition: There are scattered areas of fibroglandular density. Mass: None. Architectural distortion: No new or suspicious architectural distortion. Calcifications: No new or suspicious calcifications are present Asymmetric density: No new or suspicious asymmetric density is present Skin thickening: None. Axillary adenopathy: None. IMPRESSION: No mammographic evidence of malignancy. Recommend annual screening mammography unless otherwise clinically indicated. ASSESSMENT: BI-RADS category 1: Negative.
--- OUTSIDE RECORDS SUMMARY | 2025-09-17 11:32 | XMS_ITS | Encounter Summary ---
Author Organization [facility] ([place], [place], [place], [place], [place]) Address [address] [place] [id number] Care Team Providers Care Trouble Shooting Mechanic Name Role Phone Unavailable Primary Care Provider Unavailabl e Encounter Details Date Type Department Care Team (Late st Contact Info) Description 12/13/2018 Transcribed Document [facility] [place] [address] ProviderSonia MD [address] [place] [id number] Social History Tobacco Use Types Packs/Day Years Used Date Smoking Tobacco: Never Assessed Comments Unknown Sex and Gender Information Value Date Recorded Sex Assigned at Female 04/16/2022 4:45 PM CDT Legal Sex Female 6:29 PM CDT Gender Identity Female 04/16/2022 4:45 PM CDT Sexual Orientation Not on file documented as of this encounter Miscellaneous Notes * Cerner Conversion Note - Historical ProviderMD - 12/13/2018 8:26 PM LUBE ATTENDANT DATE OF ADMISSION: 12/13/2018 PRIMARY CARE PHYSICIAN: Dr. Sharif Duarte UROLOGIST: Dr. Gilmar Oquendo Jr. CHIEF COMPLAINT: Pelvic prolapse. HISTORY OF PRESENT ILLNESS: This is a 63-year-old white female with hypercholesterolemia, who was had problems of bladder prolapse for two years, which has gotten progressively worse. The patient was referred to Dr. Azra Sultana, who evaluated her and he recommended a definitive surgical procedure. She underwent laparoscopic robotic sacrocolpopexy by Dr. Gilmar Oquendo Jr on 12/13/2018. Patient is seen and evaluated postoperatively. She had some postoperative abdominal pain. She feels her mouth is dry. She is not nauseous. She denies any prior significant past medical history. No history of blood clotting disorder. She had previous problems with anesthesia, with nausea and vomiting, but not at this time. She denies respiratory conditions. No COPD. Patient underwent laparoscopic surgery today. The abdominal holes are clean, dry, intact. PAST MEDICAL HISTORY: 1. Hypercholesterolemia. 2. Osteoarthritis. 3. Bladder prolapse, status post robotic sacrocolpopexy on 12/13/2018. 4. Sciatica. PAST SURGICAL HISTORY: 1. Hysterectomy. 2. Rectocele. 3. Robotic sacral colpopexy on 12/13/[address] Azra Sultana. SOCIAL HISTORY: Patient is . She is never a smoker. Rare alcohol use. No illicit drug use. Code status, FULL CODE. FAMILY HISTORY: Her mother at age 88 from leukemia and congestive heart failure. Father at age 82 with multiple myeloma. ALLERGIES: ADHESIVE bands. HOME MEDICATIONS: 1. Lipitor 10 mg once a day. 2. Vitamin D3, 1000 units daily. 3. Flexeril 10 mg 3 times a day. 4. Diclofenac 75 mg daily. 5. Estradiol 1 mg daily. 6. MiraLAX 17 g daily. REVIEW OF SYSTEMS: GENERAL: No fever, no chills. No weight gain. No weight loss. HEENT: No headache. No vision changes. No sore throat. No nasal drainage. NECK: No pain. No swelling. No spasm. CARDIOVASCULAR: No chest pain. No palpitations. No orthopnea. No paroxysmal nocturnal dyspnea. RESPIRATORY: No shortness of breath. No wheeze. No cough. No hemoptysis. GI: No nausea, no vomiting. Patient with some postoperative abdominal discomfort. GENITOURINARY: Patient underwent surgery. No drainage. EXTREMITIES: No pain. No swelling. PSYCHIATRIC: Not suicidal or homicidal. NEUROLOGIC: No loss of consciousness. No seizure activity. No loss of bowel or bladder control. VASCULAR: No claudication. MUSCULOSKELETAL: No joint swelling or redness. SKIN: No rashes. No itching. PHYSICAL EXAMINATION: VITAL SIGNS: Temperature 97.2, heart rate 62, respiratory rate of 14, blood pressure 115/54, oxygen saturation 94% on room air. GENERAL: Awake, alert, oriented to time, place, and person. Patient not in acute respiratory distress. HEENT: Head is atraumatic, normocephalic. Mucous membranes are dry. No pallor. No jaundice. No cyanosis. NECK: Supple. No jugular vein distention. HEART: Regular rate and rhythm. No gallop, no rub, no murmur. CHEST: Clear to auscultation bilaterally. No wheezes, no rales, no crackles. ABDOMEN: Soft, active bowel sounds. No hepatosplenomegaly. No masses. The operative site is clean, dry, intact. GENITOURINARY: No suprapubic tenderness. No suprapubic fullness. No CVA tenderness bilaterally. PSYCHIATRIC: Not depressed or anxious. NEUROLOGIC EXAMINATION: Cranial nerves 2 through 12 grossly intact. There is no apparent focal, motor or sensory deficit. SKIN: No hematomas. No purpura. No bruises. ENDOCRINE: No thyroid enlargement or nodules. MUSCULOSKELETAL: No joint deformity, both knees, both ankles. LABORATORY TESTING: Blood collected on 12/09/2018 with serum sodium of 140, potassium 4.4, chloride 105, carbon dioxide 30, glucose 80, BUN 16, creatinine 0.55. White blood cells 4.8, hemoglobin 12.1, hematocrit 38.4, platelets 310. INR 0.9, PT 9.4, PTT 25.1. RADIOLOGIC IMAGING: A two-view chest x-ray done on 12/09/2018 with no acute cardiopulmonary disease. DIAGNOSTIC TESTING: EKG, normal sinus rhythm with a ventricular rate of 74. I reviewed the EKG myself. ASSESSMENT AND PLAN: 1. Cystocele with pelvic prolapse, status post robotic sacrocolpopexy on 12/13/[address] Gilmar Oquendo, . Patient is seen and evaluated postoperatively. She is doing well. She has been placed on normal saline solution at 125 mL/h. We will advance diet as tolerated. She has been placed on Colace 100 mg twice daily. 2. Postoperative abdominal pain, currently controlled. Patient has been placed on p.r.n. [place] and p.r.n. Dilaudid as needed. Intravenous hydration. 3. Postoperative fluid status. Patient has been placed on normal saline solution at 125 mL/h. 4. Hypercholesterolemia. Resume atorvastatin 10 mg once daily. 5. Postmenopausal status. The estradiol was held seven days prior to surgery. Continue holding estradiol 1 week after surgery. 6. Gastrointestinal prophylaxis. Patient has been placed on Protonix 40 mg once daily while in the hospital. 7. Deep venous thrombosis prophylaxis. Patient has been placed on Lovenox 40 mg subcutaneously once daily per Dr. Azra Sultana. I appreciate his input. I ordered sequential compression device while in bed. Patient is ambulatory. CODE STATUS: FULL CODE. I reviewed the patient's records, laboratory testings, x-ray findings, chest x-ray, and EKG. I discussed with the patient current condition and further plans. TIME SPENT: I spent 40 minutes in evaluation. Norm Ramey M.D. Dict: 12/13/2018 20:26:58 Trans: 12/13/2018 22:00:34 CC1: Norm Ramey M.D. CC2: Dr. Sharif Duarte Electronically signed by [facility], [facility] Conversion Office Assistant Cerner at 02/02/2023 11:28 PM CDT documented in this encounter Plan of Treatment Not on file documented as of this encounter Visit Diagnoses Not on filedocumented in this encounter
--- OUTSIDE RECORDS SUMMARY | 2025-09-17 11:32 | XMS_ITS | Encounter Summary ---
Author Organization [facility] ([place], [place], [place], [place], [place]) Address [address] [place] [address] Care Team Providers Care Agriculture Internship Name Role Phone Unavailable Primary Care Provider Unavailabl e Encounter Details Date Type Department Care Team (Late st Contact Info) Description 12/13/2018 Transcribed Document [facility] [place] [facility] [place] [address] ProviderSonia MD [address] [place] [phone] Social History Tobacco Use Types Packs/Day Years [...] Conversion Note - Historical ProviderMD - 12/13/2018 1:41 PM BUSINESS PROCESS COORDINATOR Pre Procedure Adult Entered On: 12/13/2018 13:43 EST Performed On: 12/13/2018 13:41 EST by Nirali Sheffield Rn-Traveler Height and Weight, Clinical Dosing Height Source : Stated Height Entry Format : [place] Height, Feet : 5 ft(Converted to: 152 cm, 60 Inch) Height, Inches : 7 Inch(Converted to: 0 ft 7 Inch, 17.78 cm) Clinical Height : 170.18 cm Weight Source : Standing scale Weight Entry Format : [place] Clinical Dosing Weight : 68.18 kg Weight, Pounds : 150 lb Body Surface Area (BSA) : 1.79 m2 Body Mass Index : 23.5 kg/m2 [place] Body Weight : 61 kg Nirali Sheffield Rn-Traveler - 12/13/2018 13:41 EST Health Histories Smoking Status : Never (less than 100 in lifetime; none in last 30 days) Smokeless Tobacco Status : Never Nirali Sheffield Rn-Traveler - 12/13/2018 13:41 EST Social History (As Of: 12/13/2018 13:43:53 EST) Tobacco: Never (less than 100 in lifetime) Smoking Status. Never Smokeless Tobacco Status. (Last Updated: 12/09/2018 13:22:32 EST by Marcelina Vigil RN) Alcohol: Alcohol Use History No. Date/Time of Last Drink: rarely. Use in Last 12 Months: Yes. (Last Updated: 12/09/2018 13:22:50 EST by Marcelina Vigil RN) Substance Abuse: Drug Use Hx: No. Use in Last 12 Months: No. (Last Updated: 12/09/2018 13:22:56 EST by Marcelina Vigil RN) Infectious Disease History Infectious Disease History : Chicken pox/Shingles, Measles Fever/Chills Last 48 Hours : No Travel To Regions with Travel Advisories : No Travel Outside [place] Within Last 30 Days : No Contact With Traveler to Advisory Region : No Tuberculosis Symptoms : None Nirali Sheffield Rn-Traveler - 12/13/2018 13:41 EST Anesthesia/Transfusion History Family History of Anesthesia Reaction : No prior transfusion(s) Transfusion History : Prior anesthesia without reaction Family History of Anesthesia Reaction : None Nirali Sheffield Rn-Traveler - 12/13/2018 13:41 EST Functional Assessment Living Situation : Home Patient Lives With : Spouse Current Home Treatments : None Nirali Sheffield Rn-Traveler - 12/13/2018 13:41 EST Psychosocial History Does Someone Depend on You for Care? : No Currently in Unsafe Situation : No Tried to Harm Yourself in the Past? : No Thoughts of Harming/Killing Yourself : No Nirali Sheffield Rn-Traveler - 12/13/2018 13:41 EST Advance Directive Patient has Advance Directive *Q : No, patient refuses Advance Directive information Nirali Sheffield Rn-Traveler - 12/13/2018 13:41 EST Spiritual/Cultural Needs Any Spiritual/Cultural Needs or Requests : Yes Roman Catholic Preference : Congregation Nirali Sheffield Rn-Traveler - 12/13/2018 13:41 EST Teaching/Learning Assessment Barriers To Learning : None evident Learning Style Preferences Patient : None Nirali Sheffield Rn-Traveler - 12/13/2018 13:41 EST General Info Preferred Name : Abby Arrived From : Home Mode of Arrival on Unit : Ambulatory Patient Arrival Date/Time : 12/13/2018 13:05 EST Legal Guardian : Spouse Support Person/Pt Rep Name : Britton Stout Family/Rep/Phys Notified of Admit : No Emergency Contact #1 : Britton Mireles Emergency Contact #1 Emergency Contact #1 Relationship : spouse Emergency Contact #2 : . Emergency Contact #2 Phone Number : . Emergency Contact #2 Relationship : . Primary Language : Austrian Communication Barrier : None Nirali Sheffield Rn-Traveler - 12/13/2018 13:41 EST Sleep Apnea Risk Assmt Hx of Obstructive Sleep Apnea Diagnosis : No Snore Loudly : No Tired, Fatigued, or Sleepy During Day : Yes Observed Stopping Breathing During Sleep : No Have/Are Being Treated for Hypertension : No STOP Sleep Apnea Risk Level Score : 1 STOP Sleep Apnea Risk Level : Low BMI Greater Than 35 kg/m2 : No Age over 50 Years Old : Yes Gender Male : No Neck Circumference Measured (cms) : 26 cm STOP-BANG Sleep Apnea Risk Level Score : 1 Neck Circumference Greater Than 40 cm : No Nirali Sheffield Rn-Traveler - 12/13/2018 13:41 EST Trell Scale Trell Sensory Perception : No impairment Trell Moisture : Rarely moist Trell Activity : Walks frequently Trell Mobility : No limitation Trell Nutrition : Excellent Trell Friction and Shear : No apparent problem Trell Score : 23 Nirali Sheffield Rn-Traveler - 12/13/2018 13:41 EST Oxygen Therapy Oxygen Therapy Mode : Room air Nirali Sheffield Rn-Traveler - 12/13/2018 13:41 EST Fall Risk Scales ABCs Fall Injury Risk Identification : Surgery ABC Fall Injury Risk : Moderate to high injury risk SAWYER Hx Falls Immediate/Within 3 Months : No Sawyer Secondary Diagnosis : Yes SAWYER Use of Ambulatory Aid : None SAWYER IV Therapy or IV Access : Yes Sawyer Gait/Transferring : Normal, bedrest, immobile Sawyer Mental Status : Oriented to own ability Saw[place] Fall Risk Score : 35 SAWYER Fall Scale Risk Level : 25-45 Medium Risk [place] Fall Interventions : Adequate lighting, Bed in low position, Call device within reach, Hourly comfort/safety rounds, Non-slip footwear, Upper side-rails up, Wheels locked Barriers to Learning : None evident Learning Style Preferences Patient : None Nirali Sheffield Rn-Traveler - 12/13/2018 13:41 EST Valuables and Belongings Valuables and Belongings : Clothing Clothing : Common streetwear, Outerwear Clothing Disposition : With family Nirali Sheffield Rn-Traveler - 12/13/2018 13:41 EST Electronically signed by [place], [facility] Conversion Ingot Header Cerner at 02/02/2023 11:26 PM CDT documented in this encounter Plan of Treatment Not on file documented as of this encounter Visit Diagnoses Not on filedocumented in this encounter
--- OUTSIDE RECORDS SUMMARY | 2025-09-17 11:32 | XMS_ITS | Referral Summary ---
Author Organization [facility] ([place], [place], [place], [place], [place]) Address [address] [place] [address] Care Team Providers Care Construction Project Engineer Name Role Phone Unavailable Primary Care Provider Unavailabl e Social History Tobacco Use Types Packs/Day Years Used Date Smoking Tobacco: Never Assessed Comments Unknown Sex and Gender Information Value Date Recorded Sex Assigned at Female 04/16/2022 4:45 PM CDT Legal Sex Female 6:29 PM CDT Gender Identity Female 04/16/2022 4:45 PM CDT Sexual Orientation Not on file Plan of Treatment Not on file
--- OUTSIDE RECORDS SUMMARY | 2025-09-17 11:33 | XMS_ITS | Encounter Summary ---
Author Organization [employer] ([place], [place], [place], [place], [place]) Address [address] [place] [address] Care Team Providers Care Residential Life Director Name Role Phone Unavailable Primary Care Provider Unavailabl e Encounter Details Date Type Department Care Team (Late st Contact Info) Description 12/14/2018 Transcribed Document [facility] [place] [facility] [place] [address] ProviderSonia MD [address] [place] [id number] Social History Tobacco Use Types Packs/Day Years Used Date Smoking Tobacco: Never Assessed Comments Unknown Sex and Gender Information Value Date Recorded Sex Assigned at Female 04/16/2022 4:45 PM CDT Legal Sex Female 6:29 PM CDT Gender Identity Female 04/16/2022 4:45 PM CDT Sexual Orientation Not on file documented as of this encounter Miscellaneous Notes * Cerner Conversion Note - Sonia ProviderMD - 12/14/2018 7:24 AM TIRE TESTER Patient: TIAGO MIRELES Age: 63 years Sex: Female : 1955 Associated Diagnoses: Vaginal prolapse Author: SHELLEY MOELLER JR, MD-URO Subjective doing well Pian controled Health Status Current medications: (Selected) Inpatient Medications Ordered Colace: 100 mg, Oral, BID Dilaudid: 0.5 mg, IV Push, Q4H, PRN: Pain (Severe 7-10) Lovenox: 40 mg, SubCutaneous, [id number] 1,000 mL: 125 mL/Hr, IntraVENous Normal Saline Flush: 10 mL, IV Push, BID Normal Saline Flush: 10 mL, IV Push, See Comment, PRN: IV Use Protonix: 40 mg, Oral, Daily Zofran: 4 mg, IV Push, Q4H, PRN: Nausea acetaminophen-HYDROcodone 325 mg-7.5 mg oral tablet: 1 Tab, Oral, Q4H, PRN: Pain (Moderate 4-6) atorvastatin: 10 mg, Oral, At Bedtime ketorolac: 15 mg, IV Push, Q6H, PRN: Pain (Moderate 4-6) midazolam: 2 mg, IV Push, Q10Min, PRN: Anxiety Prescriptions Prescribed Colace 100 mg oral capsule: 1 Cap, Oral, BID, 20 Cap, 0 Refill(s) Macrobid 100 mg oral capsule: 1 Cap, Oral, BID, for 14 Day(s), 28 Cap, 0 Refill(s) MiraLax oral powder for reconstitution: 17 Gram, Oral, Daily, 255 Gram, 0 Refill(s) [place] 7.5 mg-325 mg oral tablet: 1 Tab, Oral, Q4H, PRN: as needed for pain, 30 Tab, 0 Refill(s) Documented Medications Documented Flexeril: 10 mg, Oral, TID, 0 Refill(s) Vitamin D3: 1,000 Int Units, Oral, Daily, 0 Refill(s) atorvastatin 10 mg oral tablet: 1 Tab, Oral, Daily, 0 Refill(s) diclofenac: 75 mg, Oral, Daily, 0 Refill(s) docusate sodium: 100 mg, Oral, Daily, 0 Refill(s) estradiol: 1 mg, Oral, Daily, 0 Refill(s) Problem list: Medical Arthritis / SNOMED CT 5639156 / Confirmed Bladder prolapse, female, acquired / SNOMED CT 609907243 / Confirmed Sciatica / SNOMED CT 84812472 / Confirmed Tinnitus / SNOMED CT 429386675 / Confirmed Objective VS/Measurements Vitals Signs (last 24 hrs) Last Charted Minimum Maximum Temp 98.2 (DEC 14 06:52) 97.8 (DEC 13 23:59) 98.0 (DEC 13 13:43) Apical HR 75 (DEC 13 13:43) 75 (DEC 13 13:43) 75 (DEC 13 13:43) Mon HR 69 (DEC 14 06:52) 58 (DEC 13 18:46) 85 (DEC 13 17:17) Resp Rate 16 (DEC 14 06:52) 14 (DEC 13 17:17) 16 (DEC 13 13:43) SBP 94 (DEC 14 06:52) 94 (DEC 14 06:52) 126 (DEC 13 13:43) DBP L 49 (DEC 14 06:52) L 48 (DEC 13 17:25) 62 (DEC 13 17:17) MAP 60 (DEC 14 06:52) 60 (DEC 14 04:48) 86 (DEC 13 17:20) SpO2 98 (DEC 14 07:24) 94 (DEC 13 17:30) 100 (DEC 13 23:59) benign abdomen floey/vaginal pack are out Results Review DEC 14 03:28 139 107 14 / H 107 5.1 27 L 0.49 \ Impression and Plan Assessment and Plan: Diagnosis: Vaginal prolapse - Discharge, Medical. Home later today documented in this encounter Plan of Treatment Not on file documented as of this encounter Visit Diagnoses Not on filedocumented in this encounter
--- OUTSIDE RECORDS SUMMARY | 2025-09-17 11:33 | XMS_ITS | Encounter Summary ---
Author Organization [employer] ([place], [place], [place], [place], [place]) Address [address] [place] [id number] Care Team Providers Care Air Chief Marshal Name Role Phone Unavailable Primary Care Provider Unavailabl e Encounter Details Date Type Department Care Team (Late st Contact Info) Description 12/13/[address] 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 Peripheral Nerve Block Entered On: 12/13/2018 17:15 EST Performed On: 12/13/2018 17:14 EST by Janey Johnson Nurse - other Peripheral Nerve Block Site Marked and Visible : Yes Peripheral Nerve Block Start Date/Time : 12/13/2018 14:45 EST Verbally Confirm Pt, Site, and Procedure : Yes Site Preparation : Chlorhexidine (Hibiclens) Peripheral Nerve Block : Other: taps Laterality : Bilateral Peripheral Nerve Block Performed by : LEONIDES HANNA MD Medication Delivery Method : Single Shot Peripheral Nerve Block Assisted by : Janey Johnson Nurse - other Ultra sound used during insertion : Yes Nerve Block Activity, Patient Tolerance : Good Peripheral Nerve Block Comment : PRE OP NERVE BLOCK PER SURGEON REQUEST Peripheral Nerve Block End Date/Time : 12/13/2018 15:15 EST Janey Johnson, Nurse - other - 12/13/2018 17:14 EST Electronically signed by [facility] Conversion Clam Treader Cerner at 02/02/2023 11:34 PM CDT documented in this encounter Plan of Treatment Not on file documented as of this encounter Visit Diagnoses Not on filedocumented in this encounter
--- OUTSIDE RECORDS SUMMARY | 2025-09-17 11:33 | XMS_ITS | Encounter Summary ---
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 This procedure is done when your vaginal vault falls down into your lower vagina (vaginal prolapse). It repairs the condition and relieves its symptoms, which may include bowel or bladder problems, a backache, or a dragging, aching feeling. You may need this procedure if your pelvic muscles have become weak after childbirth or if you have had surgery to remove your uterus (hysterectomy). During the procedure, a surgeon may use a surgical mesh to lift and support your vagina. LET YOUR HEALTH CARE PROVIDER KNOW ABOUT: ??? Any allergies you have. ??? All medicines you are taking, including vitamins, herbs, eye drops, creams, and [id number] medicines. ??? Previous problems you or members of your family have had with the use of anesthetics. ??? Any blood disorders you have. ??? Previous surgeries you have had. ??? Medical conditions you have. RISKS AND COMPLICATIONS Generally, this is a safe procedure. However, as with any procedure, problems can occur. The most common risk is that the prolapse will happen again after surgery. Other possible problems include: ??? Bleeding. ??? Pain. ??? Pain or reduced sensation during sexual intercourse. ??? Infection. ??? Loss of urinary or bowel control. ??? Movement or loss of the surgical mesh. ??? Formation of a blood clot in your leg. ??? Having a blood clot travel to your lungs. BEFORE THE PROCEDURE ??? If you will be asleep during the procedure (under general anesthesia), do not eat or drink anything for 6?8 hours before the procedure. ??? Follow your health care provider's instructions about medicines, and ask if you can continue taking your current medicines. ? You may need to change or stop your regular medicines. ? You may need to take medicines to clean out your digestive system. ??? If you are to follow a special diet and take medicines to clean out your digestive system (bowel prep), follow your health care provider's instructions. Bowel prep is done to make sure your bowel is empty for the procedure. It can also prevent constipation. You may need to start your bowel prep a few days before the procedure. ??? If you are to use a vaginal cream to strengthen your vaginal tissues, use it as directed by your health care provider. PROCEDURE This procedure may be done through a small cut (incision) through the skin on your lower abdomen. Or, it may be done through several tiny incisions, using long instruments and a telescopic camera (laparoscopic surgery). In some cases, laparoscopic surgery is done by remote control (robotic surgery). This is what may happen during the procedure: ??? You may be given medicine to make you sleep (general anesthetic). Or, you may have medicine injected into your spine that numbs your body below the waist (spinal anesthetic). ??? Your abdomen and vagina will be cleaned with germ-killing solution. ??? A tube (catheter) will be inserted to drain your bladder. ??? Your surgeon will make one or more cuts (incisions) and then separate your vagina from your bowel and your bladder. ??? Your surgeon will push up the vaginal prolapse from below and attach a surgical mesh to your vagina. ??? The mesh will be used to lift your vaginal vault. It will be attached to part of your tailbone with stitches or tez. ??? Your surgeon will close the incision(s) with stitches or tez. AFTER THE PROCEDURE ??? You will stay in the recovery area until the anesthetics wear off. Then you will go to a hospital room. You may need to stay in the hospital for 2 or more days. ??? You may have a bandage in your vagina for a few days. ??? Health care providers will help you change your bandage and use the bathroom. ??? You will be encouraged to walk when you can get out of bed. Walking helps prevent blood clots. ??? You will get your fluids and nutrition through an IV tube until you can start eating on your own. ??? You may be given several types of medicine: ? You will be given pain medicine as needed. ? You may be given antibiotic medicine to prevent infection. ? You may be given medicine to prevent blood clots. ??? You may have your catheter removed after the first day. This information is not intended to replace advice given to you by your health care provider. Make sure you discuss any questions you have with your health care provider. Document Released: 10/09/2014 Document Reviewed: 10/09/2014 Elsevier Interactive Patient Education ? 2017 [employer] documented in this encounter Plan of Treatment Not on file documented as of this encounter Visit Diagnoses Not on filedocumented in this encounter
--- OUTSIDE RECORDS SUMMARY | 2025-09-17 11:33 | XMS_ITS | Encounter Summary ---
Author Organization [employer] ([place], [place], [place], [place], [place]) Address [address] [place] [address] Care Team Providers Care Creative Writer Name Role Phone Unavailable Primary Care Provider Unavailabl e Encounter Details Date Type Department Care Team (Late st Contact Info) Description 12/15/2018 Transcribed Document [facility] [place] Family Medicine [address] [place] [address] ProviderSonia MD [address] [place] [id number] Social History Tobacco Use Types Packs/Day Years Used Date Smoking Tobacco: Never Assessed Comments Unknown Sex and Gender Information Value Date Recorded Sex Assigned at Female 04/16/2022 4:45 PM CDT Legal Sex Female 6:29 PM CDT Gender Identity Female 04/16/2022 4:45 PM CDT Sexual Orientation Not on file documented as of this encounter Miscellaneous Notes * [employer] Conversion Note - Historical ProviderMD - 12/15/2018 11:15 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 Jennyfer Wynn Rn - 12/15/2018 11:15 EST Electronically signed by [facility] Conversion Clinical Resource Director Cerner at 02/02/2023 11:44 PM CDT documented in this encounter Plan of Treatment Not on file documented as of this encounter Visit Diagnoses Not on filedocumented in this encounter
--- OUTSIDE RECORDS SUMMARY | 2025-09-17 11:33 | XMS_ITS | Encounter Summary ---
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
--- OUTSIDE RECORDS SUMMARY | 2025-09-17 11:33 | XMS_ITS | Encounter Summary ---
Author Organization [employer] ([place], [place], [place], [place], [place]) Address [address] [place] [address] Care Team Providers Care Media Center Assistant Name Role Phone Unavailable Primary Care Provider Unavailabl e Encounter Details Date Type Department Care Team (Late st Contact Info) Description 12/13/2018 Transcribed Document [facility] [place] [facility] [place] [address] ProviderSonia MD [facility] [place] [address] Social History Tobacco Use Types [...] Cerner Conversion Note - Sonia ProviderMD - 12/13/2018 4:05 PM RN DOCUMENT IMPROVEMENT SPECIALIST [facility] Main OR IntraOp Summary Primary Physician: SHELLEY MOELLER JR, MD-URO Finalized Date/Time: 12/13/18 17:19:57 Pt. Name: ABBY NETTLES ALCIRA /Sex: 1955 Female Med Rec #: [id number] Physician: SHELLEY MOELLER JR, MD-URO Financial #: [id number] Pt. Type: O Room/Bed: Admit/Disch: 12/13/18 05:11:00 - Institution: [facility] IntraOp Case Attendance Entry 1 Entry 2 Entry 3 Case Attendee SHELLEY MOELLER JR, Davis, Aleitha E, RN Amanda Weiss MD-URO District Engineer Role Performed Surgeon/Proceduralist, Concrete Swimming Pool Installer, First Scrub, First First Time In 12/13/18 15:50:00 12/13/18 15:50:00 12/13/18 15:50:00 Time Out 12/13/18 17:05:00 12/13/18 17:16:00 12/13/18 17:05:00 Procedure Sacral Colpopexy Robotic Sacral Colpopexy Robotic Sacral Colpopexy Robotic Other Attendee Superficial Wound Closed By: Last Modified By: lGenn Ledezma RN Davis, Aleitha E, RN Glenn Ledezma, RN 12/13/18 17:19:54 12/13/18 17:19:54 12/13/18 17:19:54 Entry 4 Entry 5 Entry 6 Case Attendee Scarlett Tobin, Scrub JOSE MAGUIRE, SOFI NORIEGA, SR ACCOUNT EXECUTIVE Tech Role Performed Scrub, Second Physician assistant drafter SR ACCOUNT EXECUTIVE/Nurse Shirring Machine Operator Time In 12/13/18 15:50:00 12/13/18 15:50:00 12/13/18 15:50:00 Time Out 12/13/18 17:04:00 12/13/18 17:16:00 12/13/18 17:03:00 Procedure Sacral Colpopexy Robotic Sacral Colpopexy Robotic Sacral Colpopexy Robotic Other Attendee Superficial Wound Closed By: Last Modified By: Glenn Ledezma RN Davis, Aleitha E, Glenn Bronson, RN 12/13/18 17:19:54 12/13/18 17:19:54 12/13/18 17:19:54 Entry 7 Entry 8 Entry 9 Case Attendee Inder Bustos, MAHSA BURGOS NA LEVITSKY, BENJAMIN P - CARLINE Role Performed Search Engine Marketing Specialist, Ancillary SR ACCOUNT EXECUTIVE/Nurse Shirring Machine Operator Scrub, First Time In 12/13/18 15:50:00 12/13/18 16:25:00 12/13/18 17:02:00 Time Out 12/13/18 17:16:00 12/13/18 17:16:00 12/13/18 17:16:00 Procedure Sacral Colpopexy Robotic Sacral Colpopexy Robotic Sacral Colpopexy Robotic Other Attendee Superficial Wound Closed By: Last Modified By: Glenn Ledezma, Glenn Bronson RN Davis, Aleitha E, RN 12/13/18 17:19:54 12/13/18 17:19:54 12/13/18 17:19:54 [facility] IntraOp Case Attendance Audit 12/13/18 17:19:54 Shut Off Worker: LUCI Modifier: ALEITHADAVIS 1 <*> Procedure Sacral Colpopexy Robotic 2 <+> Time Out 2 <*> Procedure Sacral Colpopexy Robotic 3 <*> Procedure Sacral Colpopexy Robotic 4 <*> Procedure Sacral Colpopexy Robotic 5 <+> Time Out 5 <*> Procedure Sacral Colpopexy Robotic 6 <*> Procedure Sacral Colpopexy Robotic 7 <+> Time Out 7 <*> Procedure Sacral Colpopexy Robotic 8 <+> Time Out 8 <*> Procedure Sacral Colpopexy Robotic 9 <+> Time Out 9 <*> Procedure Sacral Colpopexy Robotic 12/13/18 17:05:44 Shut Off Worker: ALEITHADAVIS Modifier: ALEITHADAVIS 1 <+> Time Out 1 <*> Procedure Sacral Colpopexy Robotic 3 <+> Time Out 3 <*> Procedure Sacral Colpopexy Robotic 4 <+> Time Out 4 <*> Procedure Sacral Colpopexy Robotic 6 <+> Time Out 6 <*> Procedure Sacral Colpopexy Robotic <+> 9 Case Attendee <+> 9 Role Performed <+> 9 Time In <+> 9 Procedure 12/13/18 16:25:15 Shut Off Worker: ALEITHADAVIS Modifier: ALEITHADAVIS <+> 8 Case Attendee <+> 8 Role Performed <+> 8 Time In <+> 8 Procedure 12/13/18 16:22:51 Shut Off Worker: ALEITHADAVIS Modifier: ALEITHADAVIS <+> 1 Procedure 2 <*> Procedure Sacral Colpopexy Robotic 3 <*> Procedure Sacral Colpopexy Robotic 4 <*> Procedure Sacral Colpopexy Robotic 5 <*> Procedure Sacral Colpopexy Robotic 6 <*> Procedure Sacral Colpopexy Robotic 7 <+> Time In 7 <*> Procedure Sacral Colpopexy Robotic 12/13/18 16:15:57 Shut Off Worker: ALEITHADAVIS Modifier: ALEITHADAVIS 2 <+> Time In 2 <*> Procedure Sacral Colpopexy Robotic 3 <+> Time In 3 <*> Procedure Sacral Colpopexy Robotic 4 <+> Time In 4 <*> Procedure Sacral Colpopexy Robotic 5 <+> Time In 5 <*> Procedure Sacral Colpopexy Robotic 6 <+> Time In 6 <*> Procedure Sacral Colpopexy Robotic <+> 7 Case Attendee <+> 7 Role Performed <+> 7 Procedure [facility] IntraOp Case Times Entry 1 Patient In Room Time 12/13/18 15:50:00 Out Room Time 12/13/18 17:16:00 Anesthesia Start Time 12/13/18 15:50:00 Stop Time 12/13/18 17:16:00 Anesthesia Ready 12/13/18 15:50:00 Surgery / Procedure Times Start Time 12/13/18 16:05:00 Stop Time 12/13/18 17:11:00 Last Modified By: Glenn Ledezma RN 12/13/18 17:19:53 [facility] IntraOp Case Times Audit 12/13/18 17:19:53 Shut Off Worker: ALEITHADAVIS Modifier: ALEITHADAVIS <+> 1 Out Room Time <+> 1 Stop Time 12/13/18 17:12:00 Shut Off Worker: ALEITHADAVIS Modifier: ALEITHADAVIS <+> 1 Stop Time [facility] IntraOp Cautery Entry 1 ESU Identification Cautery Type Monopolar ESU ID Number [id number] ID Type Hospital Number Cautery Settings Cut Setting 30 Coag Setting 30 Bipolar Setting 30 ESU Grounding Pad Ground Pad Type Adult Grounding Pad Site Left thigh Grounding Pad Glenn Ledezma RN Applied By Grounding Pad Site Intact Skin Condition Before Cautery Grounding Pad Site Intact Skin Condition After Cautery Last Modified By: Glenn Ledezma RN 12/13/18 16:16:16 [facility] IntraOp Communication Entry 1 Communication To Family/Significant other Comment COMMUNICAITON BOARD Last Modified By: Glenn Ledezma RN 12/13/18 16:16:25 [facility] IntraOp Counts Verification Entry 1 Procedure Sacral Colpopexy Robotic Count Info Count Type Sponge, Sharps, Instrument, Miscellaneous Counts Verification Baseline/pre-procedure Sequence Count Results Correct, surgeon notified Counts Performed By Count Performed By Isela Amanda, (Scrub) District Engineer Count Performed By Glenn Ledezma RN (RN) Last Modified By: Glenn Ledezma RN 12/13/18 16:16:35 [facility] IntraOp Counts Final Entry 1 Procedure Sacral Colpopexy Robotic Final Count Info Count Type Sponge, Sharps, Miscellaneous Counts Verification Skin Closure/end of Sequence procedure Count Results Correct, surgeon notified Counts Performed By Count Performed By Scarlett Tobin Scrub (Scrub) Tech Count Performed By Glenn Ledezma RN (RN) Last Modified By: Glenn Ledezma RN 12/13/18 17:05:07 [facility] IntraOp Counts Final Audit 12/13/18 17:05:07 Shut Off Worker: LUCI Modifier: ALEITHADAVIS 1 <*> Procedure Sacral Colpopexy Robotic 1 <+> Count Performed By (Scrub) [facility] IntraOp Departure from OR Entry 1 Integumentary Assessment Integumentary WDL Assessment WDL Transfer/Handoff Transfer to PACU Phase I Post-op Transport Stretcher/Gurney Via Patient Transport Glenn Ledezma RN, Accompanied by SOFI PIÑA CRNA Last Modified By: Glenn Ledezma RN 12/13/18 16:19:06 [facility] IntraOp Dressing and Packing Entry 1 Type Dressing Location ABDOMEN Wound Dressing Item Skin adhesive Applied By JOSE MAGUIRE PA-C Other Comments DERMABOND Last Modified By: Glenn Ledezma RN 12/13/18 16:19:24 [facility] IntraOp Fire Risk Assessment Entry 1 Fire Info Surgical Site or 0- No Incision Above the Xyphoid Open O2 Source 0- No (Mask or Cannula) Available Ignition 1- Yes (ESU, Laser, Light Source) Fire Risk 1 Assessment Score Fire Score Fire Risk Yes Assessment Complete Fire Risk Glenn Ledezma RN Assessment Verified By Fire Risk 12/13/18 15:30:00 Assessment Verified Date/Time Fire Risk Standard Fire Yes Safety Precautions Followed Last Modified By: Glenn Ledezma RN 12/13/18 16:19:39 [facility] IntraOp Fire Risk Assessment Audit 12/13/18 16:19:39 Shut Off Worker: LUCI Modifier: ALEITHADAVIS <+> 1 Fire Risk Assessment Verified Date/Time [facility] IntraOp General Case Principal Network Architect 1 Case Information OR OR 07 SJ Case Level 1 Room Verified Yes Wound Class I - Clean Specialty SN Urology Anesthesia Type General ASA Class 2 Diagnosis Preop Diagnosis PELVIC PROLAPSE Postop Same As Preop Yes Postop Diagnosis PELVIC PROLAPSE Last Modified By: Glenn Ledezma RN 12/13/18 16:23:23 [facility] IntraOp General Case Data Audit 12/13/18 16:23:23 Shut Off Worker: LUCI Modifier: LUCI <+> 1 ASA Class [facility] IntraOp Implant Log Entry 1 Type Implant (Synthetic) Implant Log Implant Type Mesh Implant MESH Y [id number] Identification Description Implant Quantity 1 Implant Site ABDOMEN Implant [id number] Identification Lot Number Implant [place] Identification Sci:Urology/Gynecology Lobster Fisherman Name: Implant [id number] Identification Catalog Number Implant Has an Yes Expiration Date Implant Expiration 03/17/21 Date Tissue Implant Last Modified By: Glenn Ledezma RN 12/13/18 16:21:54 [facility] IntraOp Intraoperative Assessment Entry 1 Valid History / Yes Physical in Chart Preoperative Yes Checklist Reviewed/Evaluated Allergies Reviewed Yes Patient is Latex No Sensitive Isolation Not applicable Precautions Noted Level of WDL Consciousness (WDL = Alert, Oriented to Person, Place, and Time) Skin Assessment Yes Verified Present Upon IVs Arrival to OR Last Modified By: Glenn Ledezma RN 12/13/18 16:21:59 [facility] IntraOp Intraoperative Equipment Entry 1 Type Equipment Equipment Equipment Robot Intraop Monitoring Antiembolic Devices Antiembolic Devices Sequential compression device, knee high Antiembolic Device Bilateral Location Scopes Photo/Video Documentation Last Modified By: Glenn Ledezma RN 12/13/18 16:22:14 [facility] IntraOp Patient Positioning Entry 1 Procedure Sacral Colpopexy Robotic Body Position Lithotomy Left Arm Position Tucked and padded at side Right Arm Position Tucked and padded at side Left Leg Position Secured in Leg Martins Right Leg Position Secured in Leg Martins Feet Uncrossed Yes Pressure Points Yes Checked Positioning Devices Johnson Bag, Stirrups/Leg Martins, Boot Positioned By Glenn Ledezma RN, SOFI PIÑA CRNA, SAJAN MONTES DE OCA, DAREN ROSAURO, JOSE MAGUIRE PA-C Position Verified Positioning Yes Verified by Anesthesia Positioning Yes Verified by Surgeon Last Modified By: Glenn Ledezma RN 12/13/18 16:22:33 [facility] IntraOp Sign In Entry 1 Patient, Site, Yes Procedure Identified Surgical Consent Yes Confirmed Relevant Surgical Yes Documents Available Surgical Site N/A Marked by person performing procedure Anesthesia Machine Yes Check Completed Medication Checks Yes Completed Allergies Yes Airway Difficult No Airway/Aspiration Risk Difficult Yes Airway/Aspiration Intervention Equipment Available Blood Loss Risk Yes Blood Loss Yes Intervention Equipment Prepared and Ready Blood Identifiers Not applicable Verified Per Policy Hypothermia Risk Yes Warming Measures Yes Taken Last Modified By: Glenn Ledezma RN 12/13/18 16:22:38 [facility] Intra Op Sign Out Entry 1 RN Confirmation Surgical Yes Procedure(s) Identified Instrument, Sponge Yes and Sharps Counts Correct/Documented Equipment Problems N/A Documented Specimen Labeled N/A Correctly Urinary Catheter Yes Documented in IView Crain Patient Yes Recovery Concerns Reviewed with Anesthesia Provider, Surgeon and RN Crain Patient Yes Management Concerns Reviewed with Anesthesia Provider, Surgeon and RN Safety Checklist Yes Elements Complete? RN Sign Out Glenn Ledezma RN Signature RN Sign Out 12/13/18 17:12:00 Signature Date/Time Plan of Care Outcome - Fire Risk OUTCOME STATEMENT: Goal met Patient is free from injury related to surgical fire Plan of Care Outcome - Pt Positioning OUTCOME STATEMENT: Goal met Absence of signs and symptoms of positioning injury. Plan of Care Outcome - Skin Prep OUTCOME STATEMENT: Goal met Intraoperative care is consistent with measures to prevent infection Plan of Care Outcome - Xray/Images OUTCOME STATEMENT: Goal met Absence of observable signs or symptoms of radiation injury Plan of Care Outcome - Counts OUTCOME STATEMENT: Goal met Absence of signs and symptoms of injury related to extraneous objects Last Modified By: Glenn Ledezma RN 12/13/18 17:12:08 [facility] Intra Op Sign Out Audit 12/13/18 17:12:08 Shut Off Worker: LUCI Modifier: CHRISTALVIS <+> 1 RN Sign Out Signature Date/Time [facility] IntraOp Skin Prep Entry 1 Procedure Sacral Colpopexy Robotic Prescribed Yes Pre-Surgical Prep Completed Prep Area ABDOMEN, VAGINA Intraop Prep Integumentary WDL Assessment WDL Prep Agents Betadine solution, Chloraprep Prep by Glenn Ledezma RN Hair Removal Methods No hair removal performed Last Modified By: Glenn Ledezma RN 12/13/18 16:22:48 [facility] IntraOp Surgical Procedures Entry 1 Procedure Sacral Colpopexy Robotic Additional ROBOTIC SACRAL COLPOPEXY Procedure Description Primary Procedure Yes Primary Surgeon SHELLEY MOELLER JR, MD-URO Start 12/13/18 16:05:00 Stop 12/13/18 17:11:00 Anesthesia Type General Specialty SN Urology Wound Class I - Clean Last Modified By: Glenn Ledezma RN 12/13/18 17:12:09 Julio IntraOp Surgical Procedures Audit 12/13/18 17:12:09 Shut Off Worker: LUCI Modifier: LUCI <+> 1 Stop [facility] IntraOp Time Out Entry 1 Procedure to be Sacral Colpopexy Robotic Performed Time Out Time Out Pause Time 12/13/18 16:04:00 All activity Yes suspended (unless life threatening emergency) Team Verbally Correct patient Confirms Information identity, Correct side and site are marked, Consent form is present and accurate, Agreement on the procedure to be done, Correct patient position, Relevant images/results properly labeled/appropriately displayed, Confirm antibiotics have been administered, Confirm the skin prep has dried, Confirm prosthesis/implant/devic e is present, Performed in location of procedure after prepped/draped Antibiotic Yes Prophylaxis Administered Or In Progress Within the Last 60 Minutes Beta Hattie N/A Administered Venous Yes Thromboembolism Prophylaxis Required Anticipated Critical Events Surgeon None expected Anesthesia Provider None expected Nursing Assures Sterility of instruments, Implant Availability Essential Imaging Yes Labeled and Displayed Last Modified By: Glenn Ledezma RN 12/13/18 16:23:16 Case Comments <None> Finalized By: Glenn Ledezma RN Document Signatures Signed By: Glenn Ledezma RN 12/13/18 17:19 documented in this encounter Plan of Treatment Not on file documented as of this encounter Visit Diagnoses Not on filedocumented in this encounter
--- OUTSIDE RECORDS SUMMARY | 2025-09-17 11:33 | XMS_ITS | Encounter Summary ---
Author Organization [employer] ([place], [place], [place], [place], [place]) Address [address] [place] [address] Care Team Providers Care Family Consumer Science Teacher Name Role Phone Unavailable Primary Care Provider Unavailabl e Encounter Details Date Type Department Care Team (Late st Contact Info) Description 12/14/2018 Transcribed Document [facility] [place] [facility] [address] ProviderSonia MD [address] [place] [address] Social History Tobacco Use Types [...] Conversion Note - Sonia ProviderMD - 12/14/2018 5:06 PM COMMERCIAL DECORATOR Patient: TIAGO MIRELES Age: 63 years Sex: Female : 1955 Associated Diagnoses: None Author: SHAKIR BERMUDEZ MD Basic Information Still complaining of abdominal pain. More in the LLQ. Not dyspneic. Physical Examination VS/Measurements Vitals Signs (last 24 hrs) Last Charted Minimum Maximum Temp 98.3 (DEC 14 15:00) 97.8 (DEC 13 23:59) 98.3 (DEC 14 04:48) Mon HR 74 (DEC 14 15:00) 58 (DEC 13 18:46) 85 (DEC 13 17:17) Resp Rate 16 (DEC 14 15:00) 14 (DEC 13 17:17) 18 (DEC 14 11:00) SBP 93 (DEC 14 15:00) 93 (DEC 14 15:00) 125 (DEC 13:17) DBP L 40 (DEC 14 15:00) L 40 (DEC 14 15:00) 62 (DEC 13:17) MAP 52 (DEC 14 15:00) 52 (DEC 14 15:00) 86 (DEC 13 17:20) SpO2 97 (DEC 14 15:00) 94 (DEC 13 17:30) 100 (DEC 13 23:59) General: no acute distress Neurologic: Awake, alert, and oriented X3, Moves all extremities. Eye: Pupils reactive and equal bilaterally. OP clear. Neck: No carotid bruits, no JVD, no lymphadenopathy Lungs: Clear to auscultation bilaterally. No wheezes. Heart: Regular rate and rhythm. No murmurs. Abdomen: Soft, non-tender, non-distended, normal bowel sounds, no masses Extremities: No edema. Full range of motion where tested. Skin: No rashes or lesions Review / Management Results review: Labs (Last four charted values) WBC 4.8 (DEC 09) HB 11.6 (DEC 14) 12.1 (DEC 09) HCT 36.0 (DEC 14) 38.4 (DEC 09) Plt 253 (DEC 13) 310 (DEC 09) Na 139 (DEC 14) 140 (DEC 09) K 5.1 (DEC 14) 4.4 (DEC 09) Cl 107 (DEC 14) 105 (DEC 09) CO2 27 (DEC 14) 30 (DEC 09) BUN 14 (DEC 14) 16 (DEC 09) Cr L 0.49 (DEC 14) 0.55 (DEC 09) Glu R H 107 (DEC 14) 80 (DEC 09) Ca L 7.8 (DEC 14) 9.1 (DEC 09) PT L 9.4 (DEC 09) INR 0.9 (DEC 09) PTT 25.1 (DEC 09) . Impression and Plan 1. Cystocele with pelvic prolapse, status post robotic sacrocolpopexy on 12/13/2018. 2. Postoperative abdominal pain, not well controlled. Adjust pain meds as needed. 3. Continue IV fluids 4. Hypercholesterolemia. Continue atorvastatin 10 mg once daily. 5. Home when cleared by [facility] Time 25 min Electronically signed by Luis Simon Conversion Bottle House Quality Control Technician Cerner at 02/02/2023 11:36 PM CDT documented in this encounter Plan of Treatment Not on file documented as of this encounter Visit Diagnoses Not on filedocumented in this encounter
--- OUTSIDE RECORDS SUMMARY | 2025-09-17 11:33 | XMS_ITS | Encounter Summary ---
Author Organization Robert Applebaum MD ([place], [place], [place], [place], [place]) Address [address] [place] [address] Care Team Providers Care Chemical Production Engineer Name Role Phone Unavailable Primary Care Provider Unavailabl e Encounter Details Date Type Department Care Team (Late st Contact Info) Description 12/13/2018 Transcribed Document [facility] [place] [facility] [place] [address] ProviderSonia MD [address] [place] [address] Social History Tobacco Use Types Packs/Day Years [...] Conversion Note - Historical ProviderMD - 12/13/2018 7:00 PM APPAREL PATTERN MAKER Consult Phone Call Documentation Entered On: 12/13/2018 22:59 EST Performed On: 12/13/2018 19:00 EST by BRANDO CULVER Phone Call for Consults Consult Phone Call/Page Attempt : First call Physician Requesting Consult : SHELLEY MOELLER JR, MD-URO Physician Requested for Consult : DESHAWN HENDRICKSON MD-INT Provider Service Notified Name : Internal medicine Physician Covering for Consult : DESHAWN HENDRICKSON MD-INT Date and Time Call Returned : 12/13/2018 20:26 EST BRANDO CULVER - 12/13/2018 22:57 EST documented in this encounter Plan of Treatment Not on file documented as of this encounter Visit Diagnoses Not on filedocumented in this encounter
--- OUTSIDE RECORDS SUMMARY | 2025-09-17 11:33 | XMS_ITS | Encounter Summary ---
Author Organization [employer] ([place], [place], [place], [place], [place]) Address [address] [place] [address] Care Team Providers Care Coremaker Machine Name Role Phone Unavailable Primary Care Provider Unavailabl e Encounter Details Date Type Department Care Team (Late st Contact Info) Description 12/13/2018 Transcribed Document [facility] [place] [facility] [place] [address] ProviderSonia MD [address] [place] [address] Social History Tobacco Use Types [...] Conversion Note - Historical ProviderMD - 12/13/2018 1:44 PM COVER CREASER Pediatric Growth Entered On: 12/13/2018 13:44 EST Performed On: 12/13/2018 13:44 EST by Tomeka Nova Patient Integration Project Manager Height and Weight, Clinical Dosing Height Source : Stated Height Entry Format : Kimberly Height, Feet : 5 ft(Converted to: 152 cm, 60 Inch) Height, Inches : 7 Inch(Converted to: 0 ft 7 Inch, 17.78 cm) Clinical Height : 170.18 cm Weight Source : Standing scale Weight Entry Format : Kimberly Clinical Dosing Weight : 66.36 kg Weight, Pounds : 146 lb Body Surface Area (BSA) : 1.77 m2 Body Mass Index : 22.9 kg/m2 Bartlett Body Weight : 61 kg Tomeka Nova Patient Integration Project Manager - 12/13/2018 13:44 EST Electronically signed by [facility] Conversion Financial Project Manager Cerner at 02/02/2023 11:31 PM CDT documented in this encounter Plan of Treatment Not on file documented as of this encounter Visit Diagnoses Not on filedocumented in this encounter
--- OUTSIDE RECORDS SUMMARY | 2025-09-17 11:33 | XMS_ITS | Clinical Summary ---
Author Organization [employer] ([place], [place], [place], [place], [place]) Address [address] [place] [address] Care Team Providers Care Butadiene Convertor Operator Name Role Phone Unavailable Primary Care Provider [...]
--- OUTSIDE RECORDS SUMMARY | 2025-09-17 11:33 | XMS_ITS | Encounter Summary ---
Author Organization [employer] ([place], [place], [place], [place], [place]) Address [address] [place] [address] Care Team Providers Care Shipping Packer Name Role Phone Unavailable Primary Care Provider Unavailabl e Encounter Details Date Type Department Care Team (Late st Contact Info) Description 12/15/2018 Transcribed Document [facility] [place] [facility] [place] [address] ProviderSonia MD [address] [place] [address] Social History Tobacco Use Types [...] Conversion Note - Historical ProviderMD - 12/15/2018 11:14 AM BLEACH MIXER Nursing Discharge Summary Entered On: 12/15/2018 11:14 EST Performed On: 12/15/2018 11:14 EST by Jennyfer Wynn Rn Discharge Documentation Discharge Date/Time : 12/15/2018 11:34 EST Discharge, Comment : Pt discharged home. IV discontinued. Pt wheeled by staff to private vehicle. No issues. Jennyfer Wynn Rn - 12/15/2018 11:35 EST Patient Disposition, General : Discharge Discharge To : Home with ambulatory/outpatient follow-up Mode Of Departure, General Discharge : Private vehicle Accompanied By, Discharge : Spouse IV Discontinued : Yes Personal Belongings With Patient : Yes Prescriptions Given to Patient : Yes Number of Prescriptions Given : 4 Jennyfer Wynn Rn - 12/15/2018 11:14 EST Electronically signed by [facility] Conversion Clothing Examiner Cerner at 02/02/2023 11:32 PM CDT documented in this encounter Plan of Treatment Not on file documented as of this encounter Visit Diagnoses Not on filedocumented in this encounter
--- OUTSIDE RECORDS SUMMARY | 2025-09-17 11:33 | XMS_ITS | Encounter Summary ---
Author Organization [employer] ([place], [place], [place], [place], [place]) Address [address] [place] [address] Care Team Providers Care Barrel Handler Name Role Phone Unavailable Primary Care Provider Unavailabl e Encounter Details Date Type Department Care Team (Late st Contact Info) Description 12/14/2018 Transcribed Document [facility] [place] [address] [place] [address] ProviderSonia MD [address] [place] [address] Social History Tobacco Use Types [...] Note - Historical ProviderMD - 12/14/2018 5:00 AM SOCIAL WORKER CLINICAL Chart Check - Review Order Profile Entered On: 12/14/2018 4:41 EST Performed On: 12/14/2018 5:00 EST by Rashid Murphy RN Chart Check Chart Reviewed Date and Time : 12/14/2018 5:00 EST Powerplans Initiated/Discontinued as Appropriate : Yes All Active Orders Reviewed : Yes Rashid Murphy RN - 12/14/2018 4:41 EST documented in this encounter Plan of Treatment Not on file documented as of this encounter Visit Diagnoses Not on filedocumented in this encounter
--- OUTSIDE RECORDS SUMMARY | 2025-09-17 11:33 | XMS_ITS | Encounter Summary ---
Author Organization [facility] ([place], [place], [place], [place], [place]) Address [address] [place] [address] Care Team Providers Care Floorperson Name Role Phone Unavailable Primary Care Provider Unavailabl e Encounter Details Date Type Department Care Team (Late st Contact Info) Description 12/14/2018 Transcribed Document [facility] [place] [facility] [place] [address] ProviderSonia MD [address] [place] [address] Social History Tobacco Use Types Packs/Day [...] Conversion Note - Sonia ProviderMD - 12/14/2018 4:55 PM RESIDENTIAL 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 [address] , [place] [address] Patient Copy Patient Information: Name: TIAGO NETTLES Current Date: 12/14/2018 16:55:28 : 1955 Patient [facility] [address] [facility] [address] Patient Attending Physician: SHELLEY MOELLER JR, MD-URO Primary Care Provider: ROGELIO JEAN-BAPTISTE MD Primary Care Provider Discharge Diagnosis: Vaginal prolapse Weight on Admission: 150 lb, 0 oz Comment: Follow-up Instructions: With: Address: When: SHELLEY MOELLER JR [address] [place] [address], [address] [place] [address] Business (1) Within 2 to 4 weeks Discharge Instructions: Immunizations Documented During Stay: No Immunizations Found Heart Failure Discharge Instructions (if any): Stroke Related Discharge Instructions (if any): Warfarin Related Discharge Instructions (if any): Final Medication List: Printed Prescriptions acetaminophen-hydrocodone ([place] 7.5 mg-325 mg oral tablet) 1 Tablet(s) Oral Every 4 Hours as needed as needed for pain. Refills: 0. docusate (Colace 100 mg oral capsule) 1 Capsule(s) Oral Two Times A Day. Refills: 0. nitrofurantoin (Macrobid 100 mg oral capsule) 1 Capsule(s) Oral Two Times A Day for 14 Day(s). Refills: 0. polyethylene glycol 3350 (MiraLax oral powder for reconstitution) 17 Gram(s) Oral Every Day. Refills: 0. Other Medications atorvastatin (atorvastatin 10 mg oral tablet) 1 Tablet(s) Oral At Bedtime. cholecalciferol (Vitamin D3) 1,000 International Units Oral Every Day. cyclobenzaprine (cyclobenzaprine 10 mg oral tablet) 1 Tablet(s) Oral Three Times A Day as needed as needed for spasm. diclofenac 75 Milligram(s) Oral Every Day. docusate (docusate sodium) 100 Milligram(s) Oral Every Day. estradiol 1 Milligram(s) Oral Every Day. Patient Allergies: Adhesive Bandage Medication Instructions: Take your medications faithfully. Do NOT skip medication. Do NOT stop taking medications without the direction of a physician. Carry a list of your medications with you at all times, and take this medication list with you to your first follow up visit. Report any side effects. Avoid herbal remedies unless discussed with your physician. As part of your treatment plan, your physician may have prescribed a limited course of a controlled substance. This medication may be given to help people with moderate or severe pain or for other medical conditions, but there are risks involved with treatment. Common side effects may include nausea, constipation, drowsiness, sweating, itching, dry mouth, and rash. More serious side effects may include cognitive and motor impairment, like problems with thinking, concentrating, alertness, and movement (e.g. slowed reflexes), and driving and operating heavy machinery can be dangerous. It is important for you to talk to your physician if you have these side effects or questions. These controlled substances can produce physical dependence and be habit-forming if taken for an extended period of time, which means that the body has gotten used to them and may experience withdrawal symptoms if they are abruptly stopped. Withdrawal symptoms can include runny nose, sweating, goose bumps, diarrhea, abdominal cramping, rapid heartbeat, difficulty sleeping, and nervousness. CIGARETTE SMOKING: The facts are clear, cigarette smoking will shorten your life. Smoking can cause many illnesses along the way. As a healthcare provider, we recommend that you stop smoking. Assistance with quitting is available by contacting 7-563-AAHP-NOW. This is a free resource providing counseling, support, and referral. Or you may contact your personal physician. 4 WAYS TO GET AHEAD OF SEPSIS SEPSIS is a MEDICAL EMERGENCY. Time matters! Infections put you and your family at risk for a life-threatening condition called sepsis. Sepsis is the body???s extreme response to an infection. It is life-threatening, and without timely treatment, sepsis can rapidly lead to tissue damage, organ failure, and . Sepsis happens when an infection you already have???in your skin, lungs, urinary tract or somewhere else???triggers a chain reaction throughout your body. 1 PREVENT INFECTIONS Take good care of chronic conditions. Talk to your doctor about getting the recommended vaccines. 2 PRACTICE GOOD HYGIENE Wash your hands frequently. Keep cuts or open sores clean and covered until they are healed. 3 KNOW THE SYMPTOMS Confusion or disorientation Shortness of breath High heart rate Fever, shivering, or feeling very cold Extreme pain or discomfort Clammy or sweaty skin 4 ACT FAST Get medical care IMMEDIATELY if you suspect sepsis or if you have an infection that???s not getting better or is getting worse. To learn more about sepsis and how to prevent infections, visit www.cdc.gov/sepsis. STROKE is an EMERGENCY Every Minute Counts ACT F.A.S.T! FACE ?? Facial droop ?? Uneven smile ARM ?? Arm numbness ?? Arm weakness SPEECH ?? Slurred speech ?? Difficulty speaking or understanding TIME ?? Call 911 and get to the hospital immediately Have the ambulance go to the nearest stroke center. STROKE Risk Factors High blood pressure High cholesterol Heart Disease Diabetes Smoking Heavy alcohol use Physical inactivity and obesity Atrial Fibrillation (irregular heartbeat) Family history of stroke Reminder: Be sure to sign up for the My [facility] patient portal, which gives you 10/05 access to your medical information ??? including these discharge instructions ??? using your computer, smartphone, or tablet. Just go to [employer] to get started. Questions? Call . [facility] would like to thank you for allowing us to assist you with your healthcare needs. YOON Muse MARY ARGO, (or sales training representative) have received the above patient education materials/instructions and have verbalized understanding: Patient Signature _ Date/Time Patient Gas Meter Repairer Signature (if needed) Date/Time Clinician/Hospital Gas Meter Repairer Signature (if needed) Date/Time documented in this encounter Plan of Treatment Not on file documented as of this encounter Visit Diagnoses Not on filedocumented in this encounter
--- OUTSIDE RECORDS SUMMARY | 2025-09-17 11:33 | XMS_ITS | Encounter Summary ---
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 documented in this encounter Plan of Treatment Not on file documented as of this encounter Visit Diagnoses Not on filedocumented in this encounter
--- OUTSIDE RECORDS SUMMARY | 2025-09-17 11:33 | XMS_ITS | Encounter Summary ---
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 Patient: TIAGO MIRELES Age: 63 years Sex: Female : 1955 Associated Diagnoses: None Author: RAHEEM [place], PharmD Pharmacy verified patient's allergies and home medication list with the patient and pharmacy records and are as follows: Home Medications (10) Active atorvastatin 10 mg oral tablet 10 mg = 1 Tab, Oral, At Bedtime cyclobenzaprine 10 mg oral tablet 10 mg = 1 Tab, PRN, Oral, TID diclofenac 75 mg, Oral, Daily docusate sodium 100 mg, Oral, Daily estradiol 1 mg, Oral, Daily Vitamin D3 1,000 Int Units, Oral, Daily Allergies (1) Active Reaction Adhesive Bandage Rash Thanks, Raheem [place], PharmD/MSCR Electronically signed by [facility] Conversion Catering Attendant Cerner at 02/02/2023 11:41 PM CDT documented in this encounter Plan of Treatment Not on file documented as of this encounter Visit Diagnoses Not on filedocumented in this encounter
--- OUTSIDE RECORDS SUMMARY | 2025-09-17 11:33 | XMS_ITS | Encounter Summary ---
Author Organization [facility] ([place], [place], [place], [place], [place]) Address [address] [place] [address] Care Team Providers Care Tool Repairer Bench Name Role Phone Unavailable Primary Care Provider Unavailabl e Encounter Details Date Type Department Care Team (Late st Contact Info) Description 12/09/2018 Transcribed Document [facility] Radiology [address] [place] [address] Muna Henry MD [address] [facility] [address] [address] Social History Tobacco Use Types Packs/Day Years Used Date Smoking Tobacco: Never Assessed Comments Unknown Sex and Gender Information Value Date Recorded Sex Assigned at Female 04/16/2022 4:45 PM CDT Legal Sex Female 6:29 PM CDT Gender Identity Female 04/16/2022 4:45 PM CDT Sexual Orientation Not on file documented as of this encounter Miscellaneous Notes * Cerner Conversion Note - Muna Henry MD - 12/09/2018 11:40 AM EST Patient: TIAGO NETTLES Age: 63 Years Sex: Female : 1955 Chief Complaint Pelvic Prolapse PCP Sharif Duarte History of Present Illness This patient is a pleasant 63 yo WF who presents with pelvic prolapse. The prolapse has been going on for 2 years but has gotten progressively worse. It is now to the point that it is affecting her ADLs. She saw Dr Oquendo who evaluated her and she was offered a Robotic Sacral Colpopexy and agreed to the procedure. Pt denies a h/o DVT/PE. She has had N/V trouble with anesthesia in the past. No respiratory conditions including COPD/SHAY/asthma. Review of Systems Constitutional: Neg for fevers or chills. Eyes: Neg for blurry vision or change in vision. ENT: Neg for sore throat, ear pain, or dizziness. Cardiac: Neg for chest pain or dyspnea on exertion. Respiratory: Neg for shortness of breath. Gastrointestinal: Neg for nausea, vomiting, diarrhea, or constipation. Musculoskeletal: Neg for LE pain or swelling. Genitourinary: Pos for pelvic prolapse. Neurologic: Neg for headaches or seizures. Psychiatric: Neg for anxiety and depression. Integumentary: Neg for rash. Physical Exam Vitals & Measurements T: 36.1 ??C HR: 77(Peripheral) RR: 16 BP: 123/76 SpO2: 99% HT: 170.18 cm WT: 68.18 kg BMI: 23.5 Constitutional: This is a pleasant 63 yo WF in no acute distress. HEENT: Normocephalic, atraumatic. PEERLA. Extraocular muscles intact. Conjunctiva pink without exudate. Oropharynx pink and moist. Neck supple. No JVD. Cardiac: SI, S2. RRR. No M/R/G. Respiratory: Lungs CTA bilaterally. No wheezes, rales, or rhonchi. Abdomen: Soft, nontender, nondistended. Active bowel sounds. No visible masses. Musculoskeletal: Bilateral LE without clubbing, cyanosis or edema. Integumentary: Skin is pink, warm and dry. No rashes. Neurologic: CN II-XII grossly intact. Psychiatric: Judgment and affect appropriate. Assessment/Plan 1. Preoperative Evaluation- Pelvic Prolapse: Proceed with surgery as scheduled with Dr Oquendo on 12.13.2018. Pt underwent preoperative laboratory workup and diagnostic studies. 2. Hyperlipidemia- Continue Atorvastatin. 3. HRT- Pt advised to hold HRT 7 days prior to surgery. Problem List/Past Medical History Ongoing Arthritis Bladder prolapse, female, acquired Sciatica Procedure/Surgical History Hysterectomy, Rectocele. Medications Home atorvastatin 10 mg oral tablet, 10 mg= 1 Tab, Oral, Daily diclofenac, 75 mg, Oral, Daily docusate sodium, 100 mg, Oral, Daily estradiol, 1 mg, Oral, Daily Flexeril, 10 mg, Oral, TID Vitamin D3, 1000 Int Units, Oral, Daily Allergies Adhesive Bandage (rash) Social History Alcohol Alcohol Use History No. Date/Time of Last Drink: rarely. Use in Last 12 Months: Yes. Substance Abuse Drug Use Hx: No. Use in Last 12 Months: No. Tobacco Never (less than 100 in lifetime) Smoking Status. Never Smokeless Tobacco Status. Family History Pt mother at 88 from Leukemia with CHF. Pt father at 82 from MM. Lab Results WBCs- 4.8 Hbg- 12.1 Hct- 38.4 Plts- 310 Glucose- 80 Na- 140 K- 4.4 BUN- 16 Cr- 0.55 GFR- >60 PT- 9.4 INR- 0.9 PTT- 25.1 Diagnostic Results EKG- NSR, 74 CXR- NAD documented in this encounter Plan of Treatment Not on file documented as of this encounter Visit Diagnoses Not on filedocumented in this encounter
--- OUTSIDE RECORDS SUMMARY | 2025-09-17 11:33 | XMS_ITS | Clinical Summary ---
Author Organization [facility] Address [address] [place] [address] Care Team Providers Care County Home Demonstration Agent Name Role Phone Ivan Ricardo MD Primary Care Provider + Allergies No known active allergies Medications diclofenac (VOLTAREN) 75 MG EC tablet Take 1 tablet by mouth Daily. 02/22/2017 Active atorvastatin (LIPITOR) 10 MG tablet Take 1 tablet by mouth Daily. 10/16/2017 Active FLUARIX QUADRIVALENT 0.5 ML suspension prefilled syringe injection 08/03/2017 Active PNEUMOVAX 23 25 MCG/0.5ML vaccine 08/03/2017 A ctive cyclobenzaprine (FLEXERIL) 10 MG tablet Take 10 mg by mouth At Night As Needed for Muscle Spasms. Active cholecalciferol (VITAMIN D3) 1000 units tablet Take 1,000 Units by mouth Daily. Active Phenazopyridine HCl (AZO URINARY PAIN PO) Take 1 tablet by mouth As Needed. Active conjugated estrogens (PREMARIN) 0.625 MG/GM vaginal creamIndications: Midline cystocele Insert 0.5 grams intravagina lly, twice a week 30 g 3 03/17/2018 Active Active Problems Problem Noted Date Diagnosed Date Rectocele 03/17/2018 Midline cystocele 11/10/2017 Post-menopause on HRT (hormone replacement thera py) 03/10/2017 Hyperlipidemia Arthritis Anemia Resolved Problems Problem Noted Date Diagnosed Date Resolved Date Uterine prolapse 08/18/2016 09/22/2016 Rectocele 03/31/2016 08/18/2016 Enterocele 03/31/2016 08/18/2016 Family History Medical History Relation Name Comments Diabetes Brother Multiple myeloma Father Hypertension Mother Kidney disease Mother Leukemia Mother Relation Name Status Comments Brother Father Mother Social History Tobacco Use Types Packs/Day Years Used Date Smoking Tobacco: Never Smokeless Tobacco: Never Alcohol Use Standard Drinks/Week Comments Yes 0 (1 standard drink = 0.6 oz pur e alcohol) social--rarely Abuse Screen Answer Date Recorded Unsafe at Home or Work/School Not on file Feels Threatened by Someone? Not on file 08/2023 Does Anyone Keep You from Co ntacting Others or Doint Things Outside the Home? Not on file 07/28/2023 Physical Sign of Abuse Present Not on file 1 Housing Stability Answer Date Recorded Current Living Arrangements Not on file 07/18 Potentially Unsafe Housing Conditions Not on homero e 07/28/2023 Family and Community Support Answer Osmar e Recorded Help with Day-to-Day Activities Not on file 07/28/2023 Lonely or Isolated Not on file 07/28/2023 Employment Answer Date Recorded Do you want help finding or keeping work or a shagufta b? Not on file 07/28/2023 Disabilities Answer Date Recorded Concentrating, Remembering, or Making Decisions Difficulty Not on file 07/28/2023 Doing Errands Independently Difficulty Not on fi le 07/28/2023 Education Answer Date Recorded Help with school or training? Not on file Preferred Language Not on file 07/28/2023 Comments No Sex and Gender Information Value Date Recorded Sex Assigned at Not on file Legal Sex Female 2:56 PM EST Gender Identity Not on file Sexual Orientation Not on file Last Filed Vital Signs Vital Sign Reading Time Taken Comments Blood Pressure 144/80 03/17/2018 10:49 AM EDT Pulse 53 08/24/2016 11:00 AM EST Temperature 36.9 C (98.5 F) 08/24/2016 11:00 AM EST Respiratory Rate 16 08/24/2016 11:00 AM EST Oxygen Saturation 100% 08/24/2016 11:00 AM EST Inhaled Oxygen Concentration - - Weight 70.3 kg (155 lb) 03/17/2018 10:49 AM EDT Height 170.2 cm (5' 7 ) 03/17/2018 10:49 AM EDT Body Mass Index 24.28 03/17/2018 10:49 AM EDT Plan of Treatment Health Maintenance Due Date Last Done Comments LIPID PANEL 1955 TDAP/TD VACCINES (1 - Tdap) 1975 COLOGUARD 2001 COLON CANCER SCREENING 5 YEAR SIGMOIDOSCOPY 2001 COLONOSCOPY [address] CANCER SCREENING 2001 CT COLONOGRAPHY 2001 FECAL OCCULT BLOOD TEST 2001 FIT Testing (1 year) 2001 Pneumococcal Vaccine 50+ (1 of 1 - PCV) 2006 ZOSTER VACCINE (1 of 2) 2006 ANNUAL PHYSICAL 06/08/2016 HEPATITIS C SCREENING 06/08/2016 MAMMOGRAM 02/12/2019 02/12/2017 DXA SCAN 03/19/2019 03/19/2017 INFLUENZA VACCINE 05/18/2025 COVID-19 Vaccine ( season) 2025 Procedures Procedure Name Priority Date/Time Associated Diagnosis Comments SCANNED - DEXA 03/19/2017 SCANNED - MAMMO 02/12/2017 from Last 3 Months or Most Recently Relevant to Health Maintenance Results * SCANNED - DEXA (03/19/2017) Anatomical Region Laterality Modality Other Addi Byers MD CHART REVIEW TABS Christi l Result * SCANNED - MAMMO (02/12/2017) Anatomical Region Laterality Modality Other Addi Byers MD CHART REVIEW TABS Christi l Result from Last 3 Months or Most Recently Relevant to Health Maintenance Insurance EMPLOYEE Member Subscriber Plan / Payer (Ef fective 2014-Present) Name:Abby Mireles Bonny Relation to Subscriber:Self Name:Abby Mireles Bonny Payer ID:[id number] (NAIC) Type:Not on file Address: [facility] [id number] [place] [id number] Care Teams County Home Demonstration Agent Relationship Specialty Start Date End Date Ivan Ricardo MD PCP - General Family Medicine 03/09/16
--- OUTSIDE RECORDS SUMMARY | 2025-09-17 11:33 | XMS_ITS | Encounter Summary ---
Author Organization [employer] ([place], [place], [place], [place], [place]) Address [address] [place] [address] Care Team Providers Care Application Packaging Consultant Name Role Phone Unavailable Primary Care Provider Unavailabl e Encounter Details Date Type Department Care Team (Late st Contact Info) Description 12/14/[address] 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
--- OUTSIDE RECORDS SUMMARY | 2025-09-17 11:33 | XMS_ITS | Encounter Summary ---
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 [address] , [place] [address] Patient Copy Patient Information: Name: TIAGO NETTLES Current Date: 12/15/2018 11:15:45 : 1955 Patient Address: [address] [facility] [address] Patient Attending Physician: SHELLEY MOELLER JR, MD-URO Primary Care Provider: ROGELIO JEAN-BAPTISTE MD Primary Care Provider Discharge Diagnosis: Vaginal prolapse Weight on Admission: 150 lb, 0 oz Comment: Follow-up Instructions: With: Address: When: SHELLEY MOELLER JR 1:15 PM Comments: [place] Location Discharge Instructions: Diet after Discharge: Heart healthy diet Activity after Discharge: No heavy lifting over 10 pounds Driving after Discharge: Other: No driving while taking narcotic pain medication. Immunizations Documented During Stay: No Immunizations Found Heart Failure Discharge Instructions (if any): Stroke Related Discharge Instructions (if any): Warfarin Related Discharge Instructions (if any): Final Medication List: Printed Prescriptions acetaminophen-hydrocodone (Brooks 7.5 mg-325 mg oral tablet) 1 Tablet(s) [...] cramping, rapid heartbeat, difficulty sleeping, and nervousness. Patient education materials: Sacrocolpopexy Sacrocolpopexy is a surgical procedure to [...] including vitamins, herbs, eye drops, creams, and xzqw-peb-ixdcjwi medicines. ??? Previous problems you or members [...] provider. Document Released: 10/09/2014 Document Reviewed: 10/09/2014 [email or web address] Interactive Patient Education ? 2017 [employer]. Medication Leaflets: docusate (oral/rectal) (DOK ue sate) Colace, Diocto, Dioeze, Doc-Q-Lace, Docu, Docu Soft, Doculase, Docuprene, Docusil, Docusoft S, DocuSol, DOK, DSS, Dulcolax Stool Softener, Enemeez Mini, Jamel-Tin, Octycine-250, Pedia-Lax Stool Softener, Hernandez Stool Softener, Promolaxin, Silace, Surfak Stool Softener, Keegan-Q-Lax, Vacuant What is the most important information I should know about docusate? You should not use docusate if you have a blockage in your intestines. Do not use docusate while you are sick with nausea, vomiting, or severe stomach pain. You should not take mineral oil while using docusate. What is docusate? Docusate is a stool softener. It makes bowel movements softer and easier to pass. Docusate is used to treat or prevent constipation, and to reduce pain or rectal damage caused by hard stools or by straining during bowel movements. Docusate may also be used for purposes not listed in this medication guide. What should I discuss with my healthcare provider before using docusate? You should not use docusate if you are allergic to it, or if you have: ? nausea, vomiting, or severe stomach pain; ?? a blockage in your intestines; or ?? chronic stomach pain that has not been checked by a doctor. You should not take mineral oil while using docusate. Ask a doctor or pharmacist if it is safe for you to take docusate: ? if you are on a low-salt diet; or ?? if you have recently had a sudden change in your bowel habits lasting for longer than 2 weeks. FDA category C. It is not known whether docusate will harm an unborn baby. Do not use this medicine without a doctor's advice if you are . It is not known whether docusate passes into breast milk or if it could harm a nursing baby. Do not use this medicine without a doctor's advice if you are breast-feeding a baby. Do not give this medicine to a child younger than 6 years old without the advice of a doctor. How should I use docusate? Use exactly as directed on the label, or as prescribed by your doctor. Do not use in larger or smaller amounts or for longer than recommended. Take this medicine with a full glass of water. Drink plenty of liquids while you are taking docusate. Do not crush, chew, break, or open a docusate capsule or tablet. Swallow it whole. Measure liquid medicine with the dosing syringe provided, or with a special dose-measuring spoon or medicine cup. If you do not have a dose-measuring device, ask your pharmacist for one. Mix the liquid with 6 to 8 ounces of milk, fruit juice, or infant formula and drink the mixture right away. After taking docusate by mouth (tablets, capsules, liquid), you should have a bowel movement within 12 to 72 hours. Do not take docusate rectal enema by mouth. It is for use only in your rectum. Wash your hands before and after using docusate enema. Try to empty your bowel and bladder just before using the enema. Remove the cap from the enema applicator tip. Lie down on your left side with your knees bent, and gently insert the tip of the enema applicator into the rectum. Squeeze the tube to empty the entire contents into the rectum. Throw away the tube, even if there is still some medicine left in it. For best results, hold in the enema for as long as possible, or until you have a bowel movement. The rectal enema should produce a bowel movement within 2 to 15 minutes. Do not use docusate for longer than 7 days unless your doctor has told you to. Call your doctor if your symptoms do not improve, or if you have not had a bowel movement within 1 to 3 days. Overuse of a stool softener can lead to serious medical problems. Store at room temperature away from moisture and heat. What happens if I miss a dose? Since docusate is used when needed, you may not be on a dosing schedule. If you are on a schedule, use the missed dose as soon as you remember. Skip the missed dose if it is almost time for your next scheduled dose. Do not use extra medicine to make up the missed dose. What happens if I overdose? Seek emergency medical attention or call the Poison Help line at . Overdose symptoms may include nausea, vomiting or stomach pain. What should I avoid while using docusate? Avoid using laxatives or other stool softeners unless your doctor has told you to. What are the possible side effects of docusate? Get emergency medical help if you have any of these signs of an allergic reaction: hives; difficult breathing; swelling of your face, lips, tongue, or throat. Stop using docusate and call your doctor at once if you have: ? pounding heartbeats or fluttering in your chest; ?? a light-headed feeling, like you might pass out; ?? rectal bleeding or irritation; ?? numbness or a rash around your rectum; ?? vomiting, severe diarrhea or stomach cramps; or ?? continued constipation, or no bowel movement. Common side effects may include: ? dizziness, weakness; ?? gas, bloating, mild diarrhea; ?? rectal irritation; or ?? sweating. This is not a complete list of side effects and others may occur. Call your doctor for medical advice about side effects. You may report side effects to FDA at 5-575-FJW-2421. What other drugs will affect docusate? Other drugs may interact with docusate, including prescription and yuys-kuy-vgfiwxu medicines, vitamins, and herbal products. Tell each of your health care providers about all medicines you use now and any medicine you start or stop using. Where can I get more information? Your pharmacist can provide more information about docusate. Remember, keep this and all other medicines out of the reach of children, never share your medicines with others, and use this medication only for the indication prescribed. Every effort has been made to ensure that the information provided by [employer]. ('[employer]') is accurate, up-to-date, and complete, but no guarantee is made to that effect. Drug information contained herein may be time sensitive. [employer] information has been compiled for use by healthcare practitioners and consumers in the [place] and therefore [employer] does not warrant that uses outside of the [place] are appropriate, unless specifically indicated otherwise. [employer] drug information does not endorse drugs, diagnose patients or recommend therapy. [employer] drug information is an informational resource designed to assist licensed healthcare practitioners in caring for their patients and/or to serve consumers viewing this service as a supplement to, and not a substitute for, the expertise, skill, knowledge and judgment of healthcare practitioners. The absence of a warning for a given drug or drug combination in no way should be construed to indicate that the drug or drug combination is safe, effective or appropriate for any given patient. [employer] does not assume any responsibility for any aspect of healthcare administered with the aid of information [employer] provides. The information contained herein is not intended to cover all possible uses, directions, precautions, warnings, drug interactions, allergic reactions, or adverse effects. If you have questions about the drugs you are taking, check with your doctor, nurse or pharmacist. Copyright 8914-5160 [employer]. Version: 3.03. Revision Date: 11/29/2013. nitrofurantoin (KELLY troe fue RAN toin) Furadantin, Macrobid, Macrodantin What is the most important information I should know about nitrofurantoin? You should not take nitrofurantoin if you have severe kidney disease, urination problems, or a history of jaundice or liver problems caused by nitrofurantoin. Do not take nitrofurantoin if you are in the last 2 to 4 weeks of . What is nitrofurantoin? Nitrofurantoin is an antibiotic that fights bacteria in the body. Nitrofurantoin is used to treat urinary tract infections. Nitrofurantoin may also be used for purposes not listed in this medication guide. What should I discuss with my healthcare provider before taking nitrofurantoin? You should not take nitrofurantoin if you are allergic to it, or if you have: ? severe kidney disease; ?? a history of jaundice or liver problems caused by taking nitrofurantoin; ?? if you are urinating less than usual or not at all; or ?? if you are in the last 2 to 4 weeks of . Do not take nitrofurantoin if you are in the last 2 to 4 weeks of . To make sure nitrofurantoin is safe for you, tell your doctor if you have: ? kidney disease; ?? anemia; ?? diabetes; ?? an electrolyte imbalance or vitamin B deficiency; ?? vhshsux-9-cfeyoihuo dehydrogenase (G6PD) deficiency; or ?? any type of debilitating disease. FDA category B. This medicine is not expected to be harmful to an unborn baby during early . Tell your doctor if you are or plan to become during treatment. Nitrofurantoin can pass into breast milk and may harm a nursing baby. You should not breast-feed while you are taking nitrofurantoin. Nitrofurantoin should not be given to a child younger than 1 month old. How should I take nitrofurantoin? Follow all directions on your prescription label. Do not take this medicine in larger or smaller amounts or for longer than recommended. Take nitrofurantoin with food. Shake the oral suspension (liquid) well just before you measure a dose. Measure liquid medicine with the dosing syringe provided, or with a special dose-measuring spoon or medicine cup. If you do not have a dose-measuring device, ask your pharmacist for one. You may mix your liquid dose with water, milk, or fruit juice to make it easier to swallow. Drink the entire mixture right away. Use this medicine for the full prescribed length of time. Your symptoms may improve before the infection is completely cleared. Skipping doses may also increase your risk of further infection that is resistant to antibiotics. Nitrofurantoin will not treat a viral infection such as the common cold or flu. Nitrofurantoin is usually given for up to 3 days after lab tests show that the infection has cleared. If you use this medicine long-term, you may need frequent medical tests at your doctor's office. Nitrofurantoin can cause unusual results with certain lab tests for glucose (sugar) in the urine. Tell any doctor who treats you that you are using nitrofurantoin. Store at room temperature away from moisture, heat, and light. What happens if I miss a dose? Take the missed dose as soon as you remember. Skip the missed dose if it is almost time for your next scheduled dose. Do not take extra medicine to make up the missed dose. What happens if I overdose? Seek emergency medical attention or call the Poison Help line at . What should I avoid while taking nitrofurantoin? Antibiotic medicines can cause diarrhea, which may be a sign of a new infection. If you have diarrhea that is watery or has blood in it, call your doctor. Do not use any medicine to stop the diarrhea unless your doctor has told you to. Avoid using antacids without your doctor's advice. Use only the type of antacid your doctor recommends. Some antacids can make it harder for your body to absorb nitrofurantoin. What are the possible side effects of nitrofurantoin? Get emergency medical help if you have any of these signs of an allergic reaction: hives; difficult breathing; swelling of your face, lips, tongue, or throat. Call your doctor at once if you have: ? diarrhea that is watery or bloody; ?? sudden chest pain or discomfort, wheezing, dry cough or hack; ?? new or worsening cough, trouble breathing; ?? fever, chills, body aches, tiredness, unexplained weight loss; ?? numbness, tingling, or pain in your hands or feet; ?? liver problems--nausea, upper stomach pain, itching, tired feeling, loss of appetite, dark urine, angelic-colored stools, jaundice (yellowing of the skin or eyes); or ?? lupus-like syndrome--joint pain or swelling with fever, swollen glands, muscle aches, chest pain, vomiting, unusual thoughts or behavior, and patchy skin color. Serious side effects may be more likely in older adults and those who are ill or debilitated. Common side effects may include: ? headache, dizziness; ?? gas, upset stomach; ?? mild diarrhea; or ?? vaginal itching or discharge. This is not a complete list of side effects and others may occur. Call your doctor for medical advice about side effects. You may report side effects to FDA at 4-605-LQX-0196. What other drugs will affect nitrofurantoin? Other drugs may interact with nitrofurantoin, including prescription and ctgi-ohn-ohdgezw medicines, vitamins, and herbal products. Tell each of your health care providers about all medicines you use now and any medicine you start or stop using. Where can I get more information? Your pharmacist can provide more information about nitrofurantoin. Remember, keep this and all other medicines out of the reach of children, never share your medicines with others, and use this medication only for the indication prescribed. Every effort has been made to ensure that the information provided by [employer]. ('[employer]') is accurate, up-to-date, and complete, but no guarantee is made to that effect. Drug information contained herein may be time sensitive. [employer] information has been compiled for use by healthcare practitioners and consumers in the [place] and therefore [employer] does not warrant that uses outside of the [place] are appropriate, unless specifically indicated otherwise. [employer] drug information does not endorse drugs, diagnose patients or recommend therapy. [employer] drug information is an informational resource designed to assist licensed healthcare practitioners in caring for their patients and/or to serve consumers viewing this service as a supplement to, and not a substitute for, the expertise, skill, knowledge and judgment of healthcare practitioners. The absence of a warning for a given drug or drug combination in no way should be construed to indicate that the drug or drug combination is safe, effective or appropriate for any given patient. [employer] does not assume any responsibility for any aspect of healthcare administered with the aid of information [employer] provides. The information contained herein is not intended to cover all possible uses, directions, precautions, warnings, drug interactions, allergic reactions, or adverse effects. If you have questions about the drugs you are taking, check with your doctor, nurse or pharmacist. Copyright 8114-4096 [employer]. Version: 8.01. Revision Date: 12/26/2013. polyethylene glycol 3350 (danie ee ETH il een GLYE kol) ClearLax, GaviLAX, Gialax, GlycoLax, MiraLax, [id number], [employer] ClearLax What is the most important information I should know about polyethylene glycol 3350? You should not use this medicine if you have a bowel obstruction or intestinal blockage. If you have any of these conditions, you could have dangerous or life-threatening side effects from polyethylene glycol 3350. Do not use polyethylene glycol 3350 more than once per day. Call your doctor if you are still constipated or irregular after using this medication for 7 days in a row. What is polyethylene glycol 3350? Polyethylene glycol 3350 is a laxative solution that increases the amount of water in the intestinal tract to stimulate bowel movements. Polyethylene glycol 3350 is used as a laxative to treat occasional constipation or irregular bowel movements. Polyethylene glycol 3350 may also be used for purposes not listed in this medication guide. What should I discuss with my healthcare provider before taking polyethylene glycol 3350? You should not use this medicine if you are allergic to polyethylene glycol, or if you have a bowel obstruction or intestinal blockage. If you have any of these conditions, you could have dangerous or life-threatening side effects from polyethylene glycol 3350. People with eating disorders (such as anorexia or bulimia) should not use this medication without the advice of a doctor. To make sure this medicine is safe for you, tell your doctor if you have: ? nausea, vomiting, or severe stomach pain; ?? ulcerative colitis; ?? irritable bowel syndrome; ?? kidney disease; or ?? if you have had a sudden change in bowel habits that has lasted 2 weeks or longer. FDA category C. It is not known whether polyethylene glycol 3350 will harm an unborn baby. Tell your doctor if you are or plan to become while using this medication. It is not known whether polyethylene glycol 3350 passes into breast milk or if it could harm a nursing baby. Tell your doctor if you are breast-feeding a baby. How should I take polyethylene glycol 3350? Follow all directions on your prescription label. Do not use this medicine in larger or smaller amounts or for longer than recommended. To use the powder form of this medicine, measure your dose with the medicine cap on the bottle. This cap should contain dose soliman on the inside of it. Pour the powder into 4 to 8 ounces of a cold or hot beverage such as water, juice, soda, coffee, or tea. Stir this mixture and drink it right away. Do not save for later use. Polyethylene glycol 3350 should produce a bowel movement within 1 to 3 days of using the medication. Polyethylene glycol 3350 normally causes loose or even watery stools. Do not use polyethylene glycol 3350 more than once per day. Call your doctor if you are still constipated or irregular after using this medication for 7 days in a row. Store at room temperature away from moisture and heat. What happens if I miss a dose? Take the missed dose as soon as you remember. Skip the missed dose if it is almost time for your next scheduled dose. Do not take extra medicine to make up the missed dose. What happens if I overdose? Seek emergency medical attention or call the Poison Help line at . What should I avoid while taking polyethylene glycol 3350? Follow your doctor's instructions about any restrictions on food, beverages, or activity. What are the possible side effects of polyethylene glycol 3350? Get emergency medical help if you have signs of an allergic reaction: hives; difficult breathing; swelling of your face, lips, tongue, or throat. Stop taking this medicine and call your doctor at once if you have: ? severe or bloody diarrhea; ?? rectal bleeding; ?? blood in your stools; or ?? severe and worsening stomach pain. Common side effects may include: ? bloating, gas, upset stomach; ?? dizziness; or ?? increased sweating. This is not a complete list of side effects and others may occur. Call your doctor for medical advice about side effects. You may report side effects to FDA at 1-532-CET-4716. What other drugs will affect polyethylene glycol 3350? Other drugs may interact with polyethylene glycol 3350, including prescription and zrcm-nlm-jypymbu medicines, vitamins, and herbal products. Tell each of your health care providers about all medicines you use now and any medicine you start or stop using. Where can I get more information? Your pharmacist can provide more information about polyethylene glycol 3350. Remember, keep this and all other medicines out of the reach of children, never share your medicines with others, and use this medication only for the indication prescribed. Every effort has been made to ensure that the information provided by [employer]. ('[employer]') is accurate, up-to-date, and complete, but no guarantee is made to that effect. Drug information contained herein may be time sensitive. [employer] information has been compiled for use by healthcare practitioners and consumers in the [place] and therefore [employer] does not warrant that uses outside of the [place] are appropriate, unless specifically indicated otherwise. [employer]'s drug information does not endorse drugs, diagnose patients or recommend therapy. [employer] drug information is an informational resource designed to assist licensed healthcare practitioners in caring for their patients and/or to serve consumers viewing this service as a supplement to, and not a substitute for, the expertise, skill, knowledge and judgment of healthcare practitioners. The absence of a warning for a given drug or drug combination in no way should be construed to indicate that the drug or drug combination is safe, effective or appropriate for any given patient. [facility] does not assume any responsibility for any aspect of healthcare administered with the aid of information [facility] provides. The information contained herein is not intended to cover all possible uses, directions, precautions, warnings, drug interactions, allergic reactions, or adverse effects. If you have questions about the drugs you are taking, check with your doctor, nurse or pharmacist. Copyright 7825-8446 [facility] [employer] [facility]. Version: 2.04. Revision Date: 01/20/2017. CIGARETTE SMOKING: The facts are clear, cigarette smoking will shorten your life. Smoking can cause many illnesses along the way. As a healthcare provider, we recommend that you stop smoking. Assistance with quitting is available by contacting 8-832-NOLWSnowflake Youth FoundationNOW. This is a free resource providing counseling, [...] Be sure to sign up for the [employer] patient portal, which gives you 10/05 access to your medical information ??? including these discharge instructions ??? using your computer, smartphone, or tablet. Just go to [employer] to get started. Questions? Call . [facility] would like to thank you for allowing us to assist you with your healthcare needs. YOON Muse MARY ARGO, (or construction representative) have received the above patient education materials/instructions and have verbalized understanding: Patient Signature _ Date/Time Patient Staffing Assistant Signature (if needed) Date/Time Clinician/Hospital Staffing Assistant Signature (if needed) Date/Time documented in this encounter Plan of Treatment Not on file documented as of this encounter Visit Diagnoses Not on filedocumented in this encounter
--- OUTSIDE RECORDS SUMMARY | 2025-09-17 11:33 | XMS_ITS | Encounter Summary ---
Author Organization [employer] ([place], [place], [place], [place], [place]) Address [address] [place] [address] Care Team Providers Care Industrial Electrician Journeyman Name Role Phone Unavailable Primary Care Provider Unavailabl e Encounter Details Date Type Department Care Team (Late st Contact Info) Description 12/13/2018 Transcribed Document [facility] [place] Family Medicine [facility] [place] [address] ProviderSonia MD [address] [place] [address] Social History Tobacco Use Types [...] - Historical ProviderMD - 12/13/2018 1:41 PM SUPERVISOR INTELLIGENCE ANALYST Height and Weight, Clinical Dosing Entered On: 12/13/2018 13:41 EST Performed On: 12/13/2018 13:41 EST by Nirali Sheffield Rn-Traveler Height and Weight, Clinical Dosing Height Source : Stated Height Entry Format : [place] Height, Feet : 5 ft(Converted to: 152 cm, 60 Inch) Height, Inches : 7 Inch(Converted to: 0 ft 7 Inch, 17.78 cm) Clinical Height : 170.18 cm Weight Source : Standing scale Weight Entry Format : [place] Clinical Dosing Weight : 68.18 kg Weight, Pounds : 150 lb Body Surface Area (BSA) : 1.79 m2 Body Mass Index : 23.5 kg/m2 [place] Body Weight : 61 kg Nirali Sheffield Rn-Traveler - 12/13/2018 13:41 EST Electronically signed by [facility], [facility], [facility] Conversion Salesperson Wigs Cerner at 02/02/2023 11:44 PM CDT documented in this encounter Plan of Treatment Not on file documented as of this encounter Visit Diagnoses Not on filedocumented in this encounter
--- OUTSIDE RECORDS SUMMARY | 2025-09-17 11:33 | XMS_ITS | Encounter Summary ---
Author Organization [employer] ([place], [place], [place], [place], [place]) Address [address] [place] [address] Care Team Providers Care Resident Advisor Name Role Phone Unavailable Primary Care Provider Unavailabl e Encounter Details Date Type Department Care Team (Late st Contact Info) Description 12/14/2018 Transcribed Document [facility] [place] Family Medicine [facility] [place] [address] ProviderSonia MD [address] [place] [address] Social History Tobacco Use Types [...] Conversion Note - Sonia ProviderMD - 12/14/2018 8:48 AM PLASTIC INSTALLER Care Management Assessment/Plan Entered On: 12/14/2018 8:50 EST Performed On: 12/14/2018 8:48 EST by TOOTIE ABRAHAM RN Care Management Note Care Management Note : Patient underwent sacral colpopexy. Pt lives at home with spouse, independent with ADLs. Plan is to return home at dc. No dc needs at this time. Readmission risk is low.......sds Documentation Status Complete : Yes TOOTIE ABRAHAM RN - 12/14/2018 8:48 EST Patient History Emergency Contact #1 : Britton Mireles Emergency Contact #1 Emergency Contact #1 Relationship : spouse Emergency Contact #2 : . Emergency Contact #2 Phone Number : . Emergency Contact #2 Relationship : . Living Situation : Home Patient Lives With : Spouse Current Home Treatments : None TOOTIE ABRAHAM RN - 12/14/2018 8:48 EST Discharge Planning Details Discharge Home : Home with spouse/significant other TOOTIE ABRAHAM RN - 12/14/2018 8:48 EST Final Discharge Disposition Note-CM Discharge To Care Management : Home/Residential/Longterm or Self Care -01 TOOTIE ABRAHAM RN - 12/14/2018 8:48 EST Electronically signed by Luis Simon Conversion Manager Of Exhibitions And Collections Cerner at 02/02/2023 11:43 PM CDT documented in this encounter Plan of Treatment Not on file documented as of this encounter Visit Diagnoses Not on filedocumented in this encounter
--- OUTSIDE RECORDS SUMMARY | 2025-09-17 11:33 | XMS_ITS | Encounter Summary ---
Author Organization [employer] ([place], [place], [place], [place], [place]) Address [address] [place] [address] Care Team Providers Care Ecologist Technician Name Role Phone Unavailable Primary Care Provider Unavailabl e Encounter Details Date Type Department Care Team (Late st Contact Info) Description 12/13/2018 Transcribed Document [facility] [place] [facility] [place] [address] ProviderSonia MD [address] [place] [address] Social History Tobacco Use Types [...] - Sonia ProviderMD - 12/13/2018 4:05 PM STRIPER SPRAY GUN [facility] Main OR PACU Summary Primary Physician: SHELLEY MOELLER JR, MD-URO Finalized Date/Time: 12/19/18 09:02:37 Pt. Name: TIAGO NETTLES ALCIRA /Sex: 1955 Female Med Rec #: [id number] Physician: SHELLEY MOELLER JR, MD-URO Financial #: [id number] Pt. Type: O Room/Bed: [facility]/ Admit/Disch: 12/13/18 05:11:00 - 12/15/18 11:51:00 Institution: [facility] [place] Main OR PACU Case Times Entry 1 In PACU I 12/13/18 17:17:00 Ready for PACU 12/13/18 18:19:00 Discharge Discharge from PACU 12/13/18 18:40:00 I Last Modified By: Kevin Enriquez Rn-Traveler 12/19/18 09:01:52 [facility] Main OR PACU Case Times Audit 12/19/18 09:01:52 Data Reporting Analyst: SHILPI Modifier: [id number] <*> Ready for PACU Discharge 12/13/18 18:55:00 1 <*> Discharge from PACU I 12/13/18 18:19:00 12/13/18 18:19:26 Data Reporting Analyst: SHILPI Modifier: [email or web address] <+> 1 Ready for PACU Discharge <+> 1 Discharge from PACU I [facility] Main OR PACU Acuity Entry 1 Start Time 12/13/18 18:19:00 Stop Time 12/13/18 18:40:00 Acuity Level [facility] PACU Acuity I Last Modified By: Kevin Enriquez Rn-Traveler 12/19/18 09:02:24 [facility] Main OR PACU Acuity Audit 12/19/18 09:02:24 Data Reporting Analyst: SHILPI Modifier: [id number] <*> Start Time 12/13/18 18:55:00 1 <*> Stop Time 12/13/18 18:19:00 Finalized By: Kevin Enriquez Rn-Travel Document Signatures Signed By: Ct [place] Rn 12/13/18 18:19 Kevin Enriquez Rn-Traveler 12/19/18 09:02 Unfinalized History Date/Time Username Reason for Unfinalizing Freetext Reason for Unfinalizing 12/14/18 08:58 HELFEP Correct Documentation correct times documented in this encounter Plan of Treatment Not on file documented as of this encounter Visit Diagnoses Not on filedocumented in this encounter
--- OUTSIDE RECORDS SUMMARY | 2025-09-17 11:33 | XMS_ITS | Encounter Summary ---
Author Organization [employer] ([place], [place], [place], [place], [place]) Address [address] [place] [address] Care Team Providers Care Medical Care Administrator Name Role Phone Unavailable Primary Care Provider Unavailabl e Encounter Details Date Type Department Care Team (Late st Contact Info) Description 12/13/2018 Transcribed Document [facility] [place] Family Medicine [facility] [address] ProviderSonia MD [address] [place], [place] [id number] Social History Tobacco Use Types Packs/Day Years [...] Conversion Note - Historical ProviderMD - 12/13/2018 5:10 AM FLOW COORDINATOR Admission History, Adult Entered On: 12/13/2018 22:34 EST Performed On: 12/13/2018 5:10 EST by Rashid Murphy RN Advance Directive Patient has Advance Directive *Q : No, patient refuses Advance Directive information Rashid Murphy RN - 12/13/2018 22:32 EST Anesthesia/Transfusion History Family History of Anesthesia Reaction : No prior transfusion(s) Transfusion History : Prior anesthesia without reaction Family History of Anesthesia Reaction : None Rashid Murphy RN - 12/13/2018 22:32 EST Functional Assessment Living Situation : Home Patient Lives With : Spouse Current Home Treatments : None Rashid Murphy RN - 12/13/2018 22:32 EST General Info Preferred Name : Abby Arrived From : Home Mode of Arrival on Unit : Ambulatory Legal Guardian : Spouse Support Person/Pt Rep Name : Britton Chi Want Family/Rep/Phys Notified of Admit : No Emergency Contact #1 : Britton Mireles Emergency Contact #1 Emergency Contact #1 Relationship : spouse Emergency Contact #2 : . Emergency Contact #2 Phone Number : . Emergency Contact #2 Relationship : . Primary Language : Kyrgyz Communication Barrier : None Rashid Murphy RN - 12/13/2018 22:32 EST Fall Risk Scales ABCs Fall Injury Risk Identification : None SAWYER Hx Falls Immediate/Within 3 Months : No Sawyer Secondary Diagnosis : No SAWYER Use of Ambulatory Aid : None SAWYER IV Therapy or IV Access : Yes Sawyer Gait/Transferring : Normal, bedrest, immobile Sawyer Mental Status : Oriented to own ability Sawyer Fall Risk Score : 20 SAWYER Fall Scale Risk Level : 0-24 Low Risk Orange Fall Interventions : Adequate lighting, Bed in low position, Call device within reach, Fall prevention handout/education per facility policy, Hourly comfort/safety rounds, Non-slip footwear, Personal items within reach, Room free of clutter/spills, Upper side-rails up, Wheels locked, Wires/Cords secured Rashid Murphy RN - 12/13/2018 22:32 EST Fall Risk Education Grid Bed Height/Stabilization : Verbalizes understanding Call light use : Verbalizes understanding Door Open : Verbalizes understanding Environmental Management : Verbalizes understanding Night Light Use : Verbalizes understanding Nonskid Footwear Use : Verbalizes understanding Personal Article Availability : Verbalizes understanding Prevention Responsibility Family : Verbalizes understanding Prevention Responsibility Patient : Verbalizes understanding Siderails use/risks : Verbalizes understanding Special Assistive Devices : Verbalizes understanding Rashid Murphy RN - 12/13/2018 22:32 EST Barriers to Learning : None evident Individuals Taught : Patient, Spouse Learning Style Preferences Patient : None Rashid Murphy RN - 12/13/2018 22:32 EST Health Histories Smoking Status : Never (less than 100 in lifetime; none in last 30 days) Smokeless Tobacco Status : Never Rashid Murphy RN - 12/13/2018 22:32 EST Social History (As Of: 12/13/2018 22:34:11 EST) Tobacco: Never (less than 100 in [...] 12/09/2018 13:22:56 EST by Marcelina Vigil RN) Height and Weight, Clinical Dosing Height Source : Stated Height Entry Format : [place] Height, Feet : 5 ft(Converted to: 152 cm, 60 Inch) Height, Inches : 7 Inch(Converted to: 0 ft 7 Inch, 17.78 cm) Clinical Height : 170.18 cm Weight Source : Standing scale Weight Entry Format : [place] Clinical Dosing Weight : 66.36 kg Weight, Pounds : 146 lb Body Surface Area (BSA) : 1.77 m2 Body Mass Index : 22.9 kg/m2 [place] Body Weight : 61 kg Rashid Murphy RN - 12/13/2018 22:32 EST Infectious Disease History Infectious Disease History : Chicken pox/Shingles, Measles Fever/Chills Last 48 Hours : No Travel To Regions with Travel Advisories : No Travel Outside [place] Within Last 30 Days : No Contact With Traveler to Advisory Region : No Tuberculosis Symptoms : None Rashid Murphy RN - 12/13/2018 22:32 EST Tetanus Immunization Status Previous Tetanus Immunizations : No qualifying data available. Rashid Murphy RN - 12/13/2018 22:32 EST Influenza Vaccine Asmt, Adult Previous Vaccines from Immunization Schedule : No qualifying data available. Influenza Immunization, Current Season : No Inactivated Flu Vaccine Contraindications : No contraindications to inactivated influenza vaccine Transplant Workup/Recent Transplant : No Order for Influenza Vaccine : Declined Vaccination Rashid Murphy RN - 12/13/2018 22:32 EST Pneumococcal Vaccine Previous Vaccines from Immunization Schedule : No qualifying data available. Pneumonia Immunization Received : No Pneumococcal Risk Assessment < Age 65 : None Rashid Murphy RN - 12/13/2018 22:32 EST Nutrition History Eating Poorly Due to Decreased Appetite : No Unplanned Weight Loss in Past 3-6 Months : No Malnutrition Screening Tool Total(mal) : 0 Malnutrition Screening Tool Risk Level : Patient not at risk Rashid Murphy RN - 12/13/2018 22:32 EST Psychosocial History Does Someone Depend on You for Care? : No Currently in Unsafe Situation : No Tried to Harm Yourself in the Past? : No Thoughts of Harming/Killing Yourself : No Rashid Murphy RN - 12/13/2018 22:32 EST Sleep Apnea Risk Assmt Hx of [...] Circumference Greater Than 40 cm : No Rashid Murphy RN - 12/13/2018 22:32 EST Valuables and Belongings Valuables and Belongings : Clothing Clothing : Common streetwear, Outerwear Clothing Disposition : With family Rashid Murphy RN - 12/13/2018 22:32 EST Electronically signed by [facility] Conversion Electronic Court Recorder Cerner at 02/02/2023 11:38 PM CDT documented in this encounter Plan of Treatment Not on file documented as of this encounter Visit Diagnoses Not on filedocumented in this encounter
--- OUTSIDE RECORDS SUMMARY | 2025-09-17 11:33 | XMS_ITS | Encounter Summary ---
Author Organization [employer] ([place], [place], [place], [place], [place]) Address [address] [place] [address] Care Team Providers Care Cheese Cutter Name Role Phone Unavailable Primary Care Provider Unavailabl e Encounter Details Date Type Department Care Team (Late st Contact Info) Description 12/13/2018 Transcribed Document [facility] [place] Family Medicine [facility] [place] [address] ProviderSonia MD [address] [place] [address] Social History Tobacco Use Types [...] Conversion Note - Sonia ProviderMD - 12/13/2018 7:00 PM TOGGLER Pain Assessment Entered On: 12/14/2018 4:12 EST Performed On: 12/14/2018 0:43 EST by Rashid Murphy RN Intervention Information: HYDROmorphone Performed by Rashid Murphy RN on 12/14/2018 00:13:00 EST HYDROmorphone,0.5mg IV Push,Peripheral Line 1,Pain (Severe 7-10) Pain Assessment Pain Assessment : Follow-up assessment Pain Scale Used : 0-10 Scale Rashid Murphy RN - 12/14/2018 4:12 EST Pain Scale Intensity : 3 Rashid Murphy RN - 12/14/2018 4:12 EST Image 4 - Images currently included in the form version of this document have not been included in the text rendition version of the form. documented in this encounter Plan of Treatment Not on file documented as of this encounter Visit Diagnoses Not on filedocumented in this encounter
--- OUTSIDE RECORDS SUMMARY | 2025-09-17 11:33 | XMS_ITS | Encounter Summary ---
Author Organization [employer] ([place], [place], [place], [place], [place]) Address [address] [place] [address] Care Team Providers Care Master Automotive Technician Name Role Phone Unavailable Primary Care Provider Unavailabl e Encounter Details Date Type Department Care Team (Late st Contact Info) Description 12/09/2018 Transcribed Document [facility] [place] Family Medicine [facility] [place] [address] ProviderSonia MD [address] [place] [address] Social History Tobacco Use Types [...] Cerner Conversion Note - Historical ProviderMD - 12/09/2018 1:21 PM CONSTRUCTION TEACHER PAT Adult Entered On: 12/09/2018 13:27 EST Performed On: 12/09/2018 13:21 EST by Marcelina Vigil RN Vital Measurements Temperature Source : Oral Temperature Mode : Fahrenheit Temperature, Fahrenheit : 97 Deg F Clinical Temperature, C : 36.1 Deg C Pulse Method : Non-Invasive BP Device Pulse Source : Radial, Left Peripheral Pulse Rate : 77 bpm Pulse Rhythm : Regular Respiratory Rate : 16 Breaths/Min Blood Pressure Location : Arm, left upper Blood Pressure Source : Non-Invasive BP Device Blood Pressure Position : Sitting Systolic Blood Pressure : 123 mmHg Diastolic Blood Pressure : 76 mmHg Oxygen Saturation : 99 % Oxygen Therapy Mode : Room air Marcelina Vigil RN - 12/09/2018 13:21 EST Height and Weight, Clinical Dosing Height Source : Stated Height Entry Format : [place] Height, Feet : 5 ft(Converted to: 152 cm, 60 Inch) Height, Inches : 7 Inch(Converted to: 0 ft 7 Inch, 17.78 cm) Clinical Height : 170.18 cm Weight Source : Standing scale Weight Entry Format : [place] Clinical Dosing Weight : 68.18 kg Weight, Pounds : 150 lb Body Surface Area (BSA) : 1.79 m2 Body Mass Index : 23.5 kg/m2 [place] Body Weight : 61 kg Marcelina Vigil RN - 12/09/2018 13:21 EST Health Histories Smoking Status : Never (less than 100 in lifetime; none in last 30 days) Smokeless Tobacco Status : Never Marcelina Vigil RN - 12/09/2018 13:21 EST Social History (As Of: 12/09/2018 13:27:58 EST) Tobacco: Never (less than 100 in [...] Region : No Tuberculosis Symptoms : None Marcelina Vigil RN - 12/09/2018 13:21 EST Anesthesia/Transfusion History Family History of Anesthesia Reaction : No prior transfusion(s) Transfusion History : Prior anesthesia without reaction Family History of Anesthesia Reaction : None Marcelina Vigil RN - 12/09/2018 13:21 EST Functional Assessment Functional ADL Evaluation Index EBN Bathing : Independent (2) Dressing : Independent (2) Toileting : Independent (2) Transferring Bed or Chair : Independent (2) Continence : Independent (2) Feeding : Independent (2) Marcelina Vigil RN - 12/09/2018 13:21 EST ADL Index Score : 12 Marcelina Vigil RN - 12/09/2018 13:21 EST Advance Directive Patient has Advance Directive *Q : No, patient refuses Advance Directive information Marcelina Vigil RN - 12/09/2018 13:21 EST Spiritual/Cultural Needs Tenriism Preference : Mormonism Marcelina Vigil RN - 12/09/2018 13:21 EST Psychosocial History Currently in Unsafe Situation : No Tried to Harm Yourself in the Past? : No Thoughts of Harming/Killing Yourself : No Marcelina Vigil RN - 12/09/2018 13:21 EST Teaching/Learning Assessment Barriers To Learning : None evident Individuals Taught : Patient Readiness to Learn : Cooperative Baseline Knowledge of Topic : Good Readiness to Learn : Explanation, Printed materials Learning Style Preferences Patient : None Marcelina Vigil RN - 12/09/2018 13:21 EST Education Topics, Periop Preadmission Perioperative Education Grid IV's : Verbalizes understanding NPO Status/Directions : Verbalizes understanding Pain Management : Verbalizes understanding Postoperative Care Preparations : Verbalizes understanding Preprocedure Preparations : Verbalizes understanding Preprocedure Tests/Labs : Verbalizes understanding Remove Body Piercings : Verbalizes understanding Responsible Adult : Verbalizes understanding Take/Hold Medications Pre-Procedure : Verbalizes understanding Marcelina Vigil RN - 12/09/2018 13:21 EST General Info Support Person/Pt Rep Name : Britton Stout Family/Rep/Phys Notified of Admit : No Emergency Contact #1 : Britton Mireles Emergency Contact #1 Emergency Contact #1 Relationship : spouse Emergency Contact #2 : . Emergency Contact #2 Phone Number : . Emergency Contact #2 Relationship : . Primary Language : Mongolian Communication Barrier : None Marcelina Vigil RN - 12/09/2018 13:21 EST Trell Scale Trell Sensory Perception : No impairment Trell Moisture : Occasionally moist Trell Activity : Walks occasionally Trell Mobility : No limitation Trell Nutrition : Adequate Trell Friction and Shear : No apparent problem Trell Score : 20 Marcelina Vigil RN - 12/09/2018 13:21 EST Sleep Apnea Risk Assmt Hx of [...] Old : Yes Gender Male : No Marcelina Vigil RN - 12/09/2018 13:21 EST documented in this encounter Plan of Treatment Not on file documented as of this encounter Visit Diagnoses Not on filedocumented in this encounter
--- OUTSIDE RECORDS SUMMARY | 2025-09-17 11:33 | XMS_ITS | Encounter Summary ---
Author Organization [employer] ([place], [place], [place], [place], [place]) Address [address] [place] [address] Care Team Providers Care Factory Worker Name Role Phone Unavailable Primary Care Provider Unavailabl e Encounter Details Date Type Department Care Team (Late st Contact Info) Description 12/14/2018 Transcribed Document [facility] [place] Family Medicine [facility] [place] [address] ProviderSonia MD [address] [place], [place] [id number] Social History Tobacco Use Types Packs/Day Years [...] Conversion Note - Historical ProviderMD - 12/14/2018 12:41 PM PIPE LINE GAUGER Spiritual Care Short Form Entered On: 12/14/2018 12:43 EST Performed On: 12/14/2018 12:41 EST by Anthony rFederick Chaplain- General Information, Spiritual Care Spiritual Care Referred by : Interdisciplinary Team rounds Reason for Visit : Initial Ministry Provided to : Patient Intervention/Comment/Summary Points : Visited PT during care-team rounding. PT did not express any spiritual care needs or concerns. Anabaptist Preference : Jewish Summary/Next Steps Comment/Summary : Visited PT during care-team rounding. PT did not express any spiritual care needs or concerns. Anthony Frederick Chaplain- - 12/14/2018 12:41 EST Electronically signed by Luis Simon Conversion Industrial Safety And Health Manager Cerner at 02/02/2023 11:35 PM CDT documented in this encounter Plan of Treatment Not on file documented as of this encounter Visit Diagnoses Not on filedocumented in this encounter
--- OUTSIDE RECORDS SUMMARY | 2025-09-17 11:33 | XMS_ITS | Encounter Summary ---
Author Organization [employer] ([place], [place], [place], [place], [place]) Address [address] [place] [address] Care Team Providers Care Skiagrapher Name Role Phone Unavailable Primary Care Provider Unavailabl e Encounter Details Date Type Department Care Team (Late st Contact Info) Description 12/15/2018 Transcribed Document [facility] [place] Family Medicine [address] [place] [address] ProviderSonia MD [address], [place] [id number] Social History Tobacco Use Types Packs/Day Years [...] Conversion Note - Historical ProviderMD - 12/15/2018 5:00 AM MANAGER FAST FOOD Chart Check - Review Order Profile Entered On: 12/15/2018 4:34 EST Performed On: 12/15/2018 5:00 EST by Chioma Barbosa RN Chart Check Chart Reviewed Date and Time : 12/15/2018 5:00 EST Powerplans Initiated/Discontinued as Appropriate : Yes All Active Orders Reviewed : Yes Chioma Barbosa RN - 12/15/2018 4:34 EST Electronically signed by [facility] Conversion Denial Management Representative Hilario at 02/02/2023 11:29 PM CDT documented in this encounter Plan of Treatment Not on file documented as of this encounter Visit Diagnoses Not on filedocumented in this encounter
--- OUTSIDE RECORDS SUMMARY | 2025-09-17 11:33 | XMS_ITS | Encounter Summary ---
Author Organization [employer] ([place], [place], [place], [place], [place]) Address [address] [place] [address] Care Team Providers Care Smasher Name Role Phone Unavailable Primary Care Provider Unavailabl e Encounter Details Date Type Department Care Team (Late st Contact Info) Description 12/13/2018 Transcribed Document [facility] [place] [facility] [place] [address] ProviderSonia MD [address] [place] [address] Social History Tobacco Use Types [...] - Sonia ProviderMD - 12/13/2018 4:05 PM GYROSCOPE TECHNICIAN YECENIA Main OR PreOp Summary Primary Physician: SHELLEY MOELLER JR, MD-URO Finalized Date/Time: 12/13/18 16:15:11 Pt. Name: TIAGO NETTLES ALCIRA /Sex: 1955 Female Med Rec #: [id number] Physician: SHELLEY MOELLER JR, MD-URO Financial #: [id number] Pt. Type: O Room/Bed: Admit/Disch: 12/13/18 05:11:00 - Institution: [facility] [place] PreOp Case Times Entry 1 In Preop 12/13/18 13:05:00 Ready for Holding n/a Room Patient Ready for 12/13/18 14:04:00 Surgery Patient Out of Preop 12/13/18 15:48:00 Patient Out of n/a Holding Room Last Modified By: Lisa Skniner RN 12/13/18 16:15:09 [facility] PreOp Case Times Audit 12/13/18 16:15:09 Field Test Engineer: [id number] Modifier: [email or web address] <+> 1 Patient Out of Preop Finalized By: Lisa Skinner RN Document Signatures Signed By: Lisa Skinner RN 12/13/18 16:15 documented in this encounter Plan of Treatment Not on file documented as of this encounter Visit Diagnoses Not on filedocumented in this encounter
--- OUTSIDE RECORDS SUMMARY | 2025-09-17 11:33 | XMS_ITS | Encounter Summary ---
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 Provided pastoral care, empathic listening, emotional support and prayer. Spirital Assessment Comment/Summary Report : SPIRITUAL ASSESSMENT COMMENT/SUMMARY No qualifying data available. PINKY ESTEVEZ Chaplain-Non Cert - 12/13/2018 14:31 EST documented in this encounter Plan of Treatment Not on file documented as of this encounter Visit Diagnoses Not on filedocumented in this encounter
--- OUTSIDE RECORDS SUMMARY | 2025-09-17 11:33 | XMS_ITS | Encounter Summary ---
Author Organization [employer] ([place], [place], [place], [place], [place]) Address [address] [place] [address] Care Team Providers Care New Patient Escort Name Role Phone Unavailable Primary Care Provider Unavailabl e Encounter Details Date Type Department Care Team (Late st Contact Info) Description 12/14/2018 Transcribed Document [facility] [place] [facility] [place] [address] ProviderSonia MD [address] [place] [id number] Social History Tobacco Use Types Packs/Day Years [...] Conversion Note - Historical ProviderMD - 12/14/2018 6:51 AM RUSH SEATER DATE OF PROCEDURE: 12/13/2018 PREOPERATIVE DIAGNOSIS(ES): REASON FOR SURGERY: Vaginal prolapse. POSTOPERATIVE DIAGNOSIS(ES): Vaginal prolapse. PROCEDURE: 1. Robotic-assisted laparoscopic sacrocolpopexy with mesh. 2. Right ureterolysis. SURGEON: Gilmar Oquendo Jr., M.D. ANESTHESIA: General. COMPLICATIONS: None. Patient was taken to Recovery in stable condition. BLOOD LOSS: Minimal. HISTORY: This is a pleasant 63-year-old female who underwent a robotic pressed hysterectomy and developed vaginal prolapse which is symptomatic. She wishes to proceed with robotic assisted laparoscopic sacrocolpopexy with mesh. Understanding the risks, benefits, therein gives her full consent. OPERATIVE REPORT: After consent was obtained, patient was taken to the operating room, where she was placed in supine position, sterilely prepped and draped in normal fashion and placed after being placed in dorsal lithotomy position, padding all pressure points. Veress needle technique was used at the umbilicus to create pneumoperitoneum. An 8 mm blunt Visiport was used also at the umbilicus to create a camera trocar site. At this point, under direct vision, the remainder of the robotic assistant professor of business trocars were placed. Patient is placed in steep Trendelenburg position. The robot was docked. We began the operation by reflecting the sigmoid colon laterally to the left and identified the sacral promontory. We opened the posterior peritoneum over the sacral promontory. It was difficult to see the right ureter and because of this, we went ahead and dissected into the posterior peritoneum and performed ureterolysis to make sure that we knew the location of the right ureter. Once right ureter was identified, we made sure that we were creating a space well away from the ureter for the sacral promontory. The apex of the vagina was then identified by using a vaginal retractor and then bringing in it into the abdomen, we cleaned off the bladder anteriorly and nice area for the apex of the vagina for colpopexy. We fashioned a piece of white mesh and then passed in the anterior and posterior limbs of the Y-mesh to the anterior posterior aspects of the apex of the vagina using interrupted Sunray-Vineet suture. Finally, the single arm of the mesh was pexed to the sacral promontory and anterior spinal ligament which was easily identified. This done the excess mesh was excised. We closed the posterior peritoneum over the mesh extraperitonealizing the mesh. There was no injury to the urinary bladder. We were able to visualize the right ureter. The entire case having performed ureterolysis and at this point, the robot was undocked. Under laparoscopic guidance, we removed all of our trocars. The vaginal pack was placed and our incisions were closed after irrigation using 3-0 Vicryl suture in the subcutaneous tissues and Dermabond for skin closure. Anesthesia was reversed. The patient was taken to recovery room in stable condition. Gilmar Oquendo Jr., M.D. Dict: 12/14/2018 06:51:56 Trans: 12/14/2018 09:39:20 CC1: Gilmar Oquendo Jr., M.D. documented in this encounter Plan of Treatment Not on file documented as of this encounter Visit Diagnoses Not on filedocumented in this encounter
--- OUTSIDE RECORDS SUMMARY | 2025-09-17 11:33 | XMS_ITS | Encounter Summary ---
Author Organization [employer] ([place], [place], [place], [place], [place]) Address [address] [place] [address] Care Team Providers Care Outside Event Sales Specialist Name Role Phone Unavailable Primary Care Provider Unavailabl e Encounter Details Date Type Department Care Team (Late st Contact Info) Description 12/15/[address] 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
--- OUTSIDE RECORDS SUMMARY | 2025-09-17 11:33 | XMS_ITS | Encounter Summary ---
Author Organization [employer] ([place], [place], [place], [place], [place]) Address [address] [place] [address] Care Team Providers Care It Security Manager Name Role Phone Unavailable Primary Care Provider Unavailabl e Encounter Details Date Type Department Care Team (Late st Contact Info) Description 12/13/2018 Transcribed Document 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 documented in this encounter Plan of Treatment Not on file documented as of this encounter Visit Diagnoses Not on filedocumented in this encounter
--- OUTSIDE RECORDS SUMMARY | 2025-09-17 11:33 | XMS_ITS | Encounter Summary ---
Author Organization [employer] ([place], [place], [place], [place], [place]) Address [address] [place] [address] Care Team Providers Care Flight/Transport Nurse Name Role Phone Unavailable Primary Care Provider Unavailabl e Encounter Details Date Type Department Care Team (Late st Contact Info) Description 12/15/2018 Transcribed Document [facility] [place] [facility] [place] [address] ProviderSonia MD [address] [place] [address] Social History Tobacco Use Types [...] Conversion Note - Historical ProviderMD - 12/15/2018 4:12 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 No respiratory conditions including COPD/SHAY/asthma. Pt had her procedure on Wednesday and tolerated well. She had had improved pain control and is ambulating and tolerating po intake. Cleared by Urology for discharge. Medically stable for discharge today. Procedures and Treatment Provided SN - Proc - Procedure: Sacral Colpopexy Robotic (12/13/18 16:22:51 EST) Physical Exam Vitals & Measurements T: 36.8 ??C TMIN: 36.7 ??C TMAX: 37.2 ??C HR: 72(Monitored) RR: 16 BP: 120/44 SpO2: 96% Discharge Plan Other female genital prolapse N81.89, Other female genital prolapse N81.89 Vaginal prolapse N81.10 Patient Discharge Condition Good Discharge Disposition Home Time for preparation of discharge was less than 30 minutes. I personally evaluated the patient on the day of discharge. Discharge Medications atorvastatin 10 mg oral tablet 10 mg = 1 Tab, Oral, At Bedtime Colace 100 mg oral capsule 100 mg = 1 Cap, Oral, BID cyclobenzaprine 10 mg oral tablet 10 mg = 1 Tab, PRN, Oral, TID diclofenac 75 mg, Oral, Daily docusate sodium 100 mg, Oral, Daily estradiol 1 mg, Oral, Daily Macrobid 100 mg oral capsule 100 mg = 1 Cap, Oral, BID MiraLax oral powder for reconstitution 17 Gram, Oral, Daily [place] 7.5 mg-325 mg oral tablet 1 Tab, PRN, Oral, Q4H Vitamin D3 1,000 Int Units, Oral, Daily Blood Products No qualifying data available. documented in this encounter Plan of Treatment Not on file documented as of this encounter Visit Diagnoses Not on filedocumented in this encounter
== END 2025-09-17 23:59 | disposition home or self-care (01) ==
LOC: RAD 10:44
PROVIDERS: PCP Internal Medicine Adolescent Medicine; Visit Provider Obstetrics & Gynecology Gynecology
DX: Z12.31 Encounter for screening mammogram for malignant neoplasm of breast (principal); R92.323 Mammographic fibroglandular density, bilateral breasts
CPT/HCPCS: 77063; 77067